=== PATIENT | male | born 1925 | race Caucasian/White ===

== ENCOUNTER 2017-02-01 17:27 | Inpatient (IN) | payer MEDICARE ==
[~2017-02-01] VITALS: Ht 182.9 cm; Wt 63.5 kg
--- NOTE | 2017-02-01 17:38 | Emergency Room Report ---
History of Present Illness General Chief Complaint: Syncope Source: Patient Present Illness HPI Patient presents with complaints of possible syncopal episode Paramedics report that there was some argument with the patient's daughter and therefore history was extremely limited There reports was essentially syncopal episode here the patient cannot provide specific history he states that he has many medical problems but cannot give any specific diagnoses or any other medications Am still pending for the family to arrive patient does feel somewhat short of breath however Denies any vomiting or diarrhea He has a sacral decubitus ulcer which is painful Patient's daughter did present soon after his arrival She does provide significant information that the patient has had 2 recent admissions to [facility] Patient has found to be anemic and had blood transfusion this past Tuesday Patient is also on anticoagulations for the atrial fibrillation The daughter describes the episode as the patient's becoming extremely weak while standing at the restroom and describes a near syncopal episode the patient was helped down to the ground Allergies: Coded Allergies: CLINDAMYCIN (Unverified Allergy, Unknown, 02/01/17) DOXYCYCLINE (Unverified Allergy, Unknown, 02/01/17) PENICILLINS (Unverified Allergy, Unknown, 02/01/17) SULFA (SULFONAMIDE ANTIBIOTICS) (Unverified Allergy, Unknown, 02/01/17) Patient History Past Medical History: see triage record Pertinent Family History: none Reviewed Nursing Documentation: PMH: Agreed, PSxH: Agreed Nursing Documentation-PMH Past Medical History: No Stated History Review of Systems All Other Systems: negative except mentioned in HPI Physical Exam Vital Signs Date Time Temp Pulse Resp B/P Pulse Ox O2 Delivery O2 Flow Rate FiO2 02/01/17 17:22 97.9 88 16 130/80 98 Room Air Sp02 EP Interpretation: reviewed, normal General Appearance: no apparent distress - However the patient appears jaundice Head: normocephalic, atraumatic Eyes: bilateral eye PERRL, bilateral eye EOMI, bilateral eye scleral icterus ENT: hearing grossly normal, normal pharynx, TMs + canals normal, uvula midline Neck: full range of motion, supple, no meningismus, no bony tend Respiratory: no retraction, no accessory muscle use, crackles - diffuse lower lobes Cardiovascular #1: normal peripheral pulses, regular rate, rhythm, no gallop, no JVD, no murmur, edema - 2/4 pitting bilateral lower extremity Gastrointestinal: normal bowel sounds, non tender, soft, no mass, no organomegaly, non-distended, no guarding, no hernia, no pulsatile mass, no rebound Genitourinary: no CVA tenderness Musculoskeletal: normal inspection Neurologic: responsive - However appears mildly confused, campus chaplain III-XII nml as tested, motor strength/tone normal, sensory intact Psychiatric: mood/affect normal Skin: other - Jaundice appearance with pitting edema Lymphatic: no adenopathy Procedures Critical Care Time Critical Care Time 40 minutes for multiple re\re evaluations, critical findings on laboratory, multiorgan dysfunction including cardiac, renal, and liver Multiple discussion with family, not including any procedural time Medical Decision Making Diagnostic Impression: Primary Impression: Syncope Additional Impressions: Cholecystitis LFT elevation Sacral wound ER Course Patient is a fairly complex patient with multiple differential to consideration including but not limited to cardiac cardiopulmonary, infectious and vascular emergencies Patient's blood work reveals some abnormal findings including transaminases elevated Patient had recent blood work at [facility] total bilirubin was elevated at that time however the AST ALT were normal Ultrasound this time reveals a thickened gallbladder with sludge reason for concern of possible cholecystitis Patient's EKG is also abnormal X-ray also showing signs of effusion and possible CHF Patient was initiated on broad-spectrum antibiotics Diuretic And requires multispecialty consultation Labs Test 02/01/17 17:45 02/01/17 19:00 02/01/17 19:35 02/01/17 21:50 White Blood Count 8.8 K/UL (4.8-10.8) Red Blood Count 3.20 M/UL (4.70-6.10) Hemoglobin 10.2 G/DL (14.2-18.0) Hematocrit 29.2 % (42.0-52.0) Mean Corpuscular Volume 91 FL (80-99) Mean Corpuscular Hemoglobin 31.8 PG (27.0-31.0) Mean Corpuscular Hemoglobin Concent 34.7 G/DL (32.0-36.0) Red Cell Distribution Width 17.3 % (11.6-14.8) Platelet Count 124 K/UL (150-450) Mean Platelet Volume 7.9 FL (6.5-10.1) Neutrophils (%) (Auto) 81.2 % (45.0-75.0) Lymphocytes (%) (Auto) 13.1 % (20.0-45.0) Monocytes (%) (Auto) 5.2 % (1.0-10.0) Eosinophils (%) (Auto) 0.2 % (0.0-3.0) Basophils (%) (Auto) 0.4 % (0.0-2.0) Differential Total Cells Counted 100 Neutrophils % (Manual) 74 % (45-75) Lymphocytes % (Manual) 15 % (20-45) Monocytes % (Manual) 7 % (1-10) Eosinophils % (Manual) 0 % (0-3) Basophils % (Manual) 0 % (0-2) Band Neutrophils 4 % (0-8) Platelet Estimate Decreased Platelet Morphology Normal Hypochromasia 1+ Anisocytosis 1+ Prothrombin Time 14.3 SEC (9.30-11.50) 17.9 SEC (9.30-11.50) Prothromb Time International Ratio 1.4 (0.9-1.1) 1.7 (0.9-1.1) Activated Partial Thromboplast Time 28 SEC (23-33) Sodium Level 138 mEQ/L (135-145) Potassium Level 4.3 mEQ/L (3.4-4.9) Chloride Level 97 mEQ/L (98-107) Carbon Dioxide Level 26 mEQ/L (20-30) Anion Gap 15 (5-15) Blood Urea Nitrogen 22 mg/dL (7-23) Creatinine 1.0 mg/dL (0.7-1.2) Estimat Glomerular Filtration Rate mL/min (>60) Glucose Level 136 mg/dL (74-106) Lactic Acid Level 3.60 mmol/L (0.66-2.22) 2.40 mmol/L (0.66-2.22) Calcium Level 9.4 mg/dL (8.6-10.2) Total Bilirubin 5.1 mg/dL (0.0-1.2) Direct Bilirubin 3.1 mg/dL (0.1-0.3) Aspartate Amino Transf (AST/SGOT) 521 U/L (5-40) Alanine Aminotransferase (ALT/SGPT) 279 U/L (3-41) Alkaline Phosphatase 247 U/L (40-129) Total Creatine Kinase 47 U/L (38-174) Creatine Kinase MB 4.0 ng/mL (< 6.7) Creatine Kinase MB Relative Index 8.5 Troponin I < 0.30 ng/mL (<=0.30) Pro-B-Type Natriuretic Peptide 8430 pg/mL (0-450) Total Protein 5.9 g/dL (6.6-8.7) Albumin 4.4 g/dL (3.5-5.2) Globulin 1.5 g/dL Albumin/Globulin Ratio 2.9 (1.0-2.7) Lipase 44 U/L (< 60) Urine Color Brown Urine Appearance Slightly cloudy Urine pH 5 (4.5-8.0) Urine Specific [place] 1.005 (1.005-1.035) Urine Protein 2+ (NEGATIVE) Urine Glucose (UA) Negative (NEGATIVE) Urine Ketones Negative (NEGATIVE) Urine Occult Blood 5+ (NEGATIVE) Urine Nitrite Negative (NEGATIVE) Urine Bilirubin 1+ (NEGATIVE) Urine Ictotest Negative Urine Urobilinogen 8 MG/DL (0.0-1.0) Urine Leukocyte Esterase 1+ (NEGATIVE) Urine RBC 20-30 /HPF (0 - 0) Urine WBC 5-10 /HPF (0 - 0) Urine Squamous Epithelial Cells None /LPF (NONE/OCC) Urine Amorphous Sediment Few /LPF (NONE) Urine Bacteria Moderate /HPF (NONE) Ammonia 26 umol/L (16-60) Digoxin Level 1.8 ng/mL (0.5-2.0) Reticulocyte Count 3.8 % (0.0-2.0) Fibrinogen 196 mg/dL (200-400) Uric Acid 4.9 mg/dL (3.0-7.5) Iron Level 30 ug/dL (59-158) Total Iron Binding Capacity 255 ug/dL (250-400) Percent Iron Saturation 12 % (15-50) Unsaturated Iron Binding 225 ug/dL (112-346) Ferritin 511 ng/mL (10-230) Lactate Dehydrogenase 852 U/L (135-230) Vitamin B12 Level > 2000 pg/mL (211-946) Hepatitis A IgM Antibody Negative (Negative) Hepatitis B Surface Antigen Negative (Negative) Hepatitis B Core IgM Antibody Negative (Negative) Hepatitis C Antibody <0.1 s/co ratio HIV (1&2) Antibody Rapid Negative (NEGATIVE) Test 02/02/17 07:45 02/02/17 12:00 02/03/17 07:10 White Blood Count 10.7 K/UL (4.8-10.8) 6.6 K/UL (4.8-10.8) Red Blood Count 3.04 M/UL (4.70-6.10) 3.15 M/UL (4.70-6.10) Hemoglobin 9.1 G/DL (14.2-18.0) 9.4 G/DL (14.2-18.0) Hematocrit 27.8 % (42.0-52.0) 29.2 % (42.0-52.0) Mean Corpuscular Volume 91 FL (80-99) 93 FL (80-99) Mean Corpuscular Hemoglobin 29.9 PG (27.0-31.0) 29.9 PG (27.0-31.0) Mean Corpuscular Hemoglobin Concent 32.8 G/DL (32.0-36.0) 32.3 G/DL (32.0-36.0) Red Cell Distribution Width 16.8 % (11.6-14.8) 17.2 % (11.6-14.8) Platelet Count 132 K/UL (150-450) 133 K/UL (150-450) Mean Platelet Volume 7.6 FL (6.5-10.1) 8.1 FL (6.5-10.1) Neutrophils (%) (Auto) 80.3 % (45.0-75.0) 77.9 % (45.0-75.0) Lymphocytes (%) (Auto) 10.4 % (20.0-45.0) 9.7 % (20.0-45.0) Monocytes (%) (Auto) 8.7 % (1.0-10.0) 9.8 % (1.0-10.0) Eosinophils (%) (Auto) 0.2 % (0.0-3.0) 1.5 % (0.0-3.0) Basophils (%) (Auto) 0.4 % (0.0-2.0) 1.0 % (0.0-2.0) Prothrombin Time 17.6 SEC (9.30-11.50) 16.1 SEC (9.30-11.50) Prothromb Time International Ratio 1.7 (0.9-1.1) 1.5 (0.9-1.1) Digoxin Level 1.8 ng/mL (0.5-2.0) Stool Occult Blood Negative (NEGATIVE) Sodium Level 134 mEQ/L (135-145) Potassium Level 3.9 mEQ/L (3.4-4.9) Chloride Level 95 mEQ/L (98-107) Carbon Dioxide Level 30 mEQ/L (20-30) Anion Gap 9 (5-15) Blood Urea Nitrogen 21 mg/dL (7-23) Creatinine 1.0 mg/dL (0.7-1.2) Estimat Glomerular Filtration Rate mL/min (>60) Glucose Level 142 mg/dL (74-106) Hemoglobin A1c 5.4 % (< 6.0) Uric Acid 4.3 mg/dL (3.0-7.5) Calcium Level 8.9 mg/dL (8.6-10.2) Phosphorus Level 3.2 mg/dL (2.5-4.8) Magnesium Level 1.9 mg/dL (1.7-2.5) Total Bilirubin 4.3 mg/dL (0.0-1.2) Direct Bilirubin 2.1 mg/dL (0.1-0.3) Gamma Glutamyl Transpeptidase 257 U/L (8-61) Aspartate Amino Transf (AST/SGOT) 188 U/L (5-40) Alanine Aminotransferase (ALT/SGPT) 317 U/L (3-41) Alkaline Phosphatase 215 U/L (40-129) Ammonia 24 umol/L (16-60) C-Reactive Protein, Quantitative 9.9 mg/dL (< 0.5) Pro-B-Type Natriuretic Peptide 7664 pg/mL (0-450) Total Protein 5.8 g/dL (6.6-8.7) Albumin 3.6 g/dL (3.5-5.2) Globulin 2.2 g/dL Albumin/Globulin Ratio 1.6 (1.0-2.7) Triglycerides Level 81 mg/dL (< 150) Cholesterol Level 80 mg/dL (< 200) LDL Cholesterol 36 mg/dL (60-99) HDL Cholesterol 28 mg/dL (> 60) Cholesterol/HDL Ratio 2.9 (3.3-4.4) Amylase Level 36 U/L (10-110) Carcinoembryonic Antigen 1.0 ng/mL Thyroid Stimulating Hormone (TSH) 0.922 uIU/mL (0.300-4.500) Free Thyroxine 1.23 ng/dL (0.86-1.85) EKG Diagnostic Results Rate: other - atrial fibrillation Rhythm: other ST Segments: other - Nonspecific ST and T-wave changes, concerning changes for ischemia Rhythm Strip Diag. Results EP Interpretation: yes Rate: 77 Rhythm: no PVC's, no ectopy, other - atrial fibrillation Chest X-Ray Diagnostic Results Chest X-Ray Diagnostic Results : Chest X-Ray Ordered: Yes # of Views/Limited/Complete: 1 View Indication: Chest Pain EP Interpretation: Yes Interpretation: no pneumothorax, other - Bilateral effusions, cardiomegaly, no obvious acute bony abnormalities Impression: Other - Bilateral effusions, cardiomegaly Interpreting ER Provider: Latesha River, DO CT/MRI/US Diagnostic Results CT/MRI/US Diagnostic Results : Impression Abdominal ultrasound: Thickened gallbladder, sludge refer to report for full detail Last Vital Signs Date Time Temp Pulse Resp B/P Pulse Ox O2 Delivery O2 Flow Rate FiO2 02/01/17 17:22 97.9 88 16 130/80 98 Room Air Status: improved Disposition: ADMITTED INPATIENT Condition: Critical LATESHA RIVER D.O. Feb 01, 2017 17:38
[2017-02-01 18:03] VITALS: BP 135/51
[2017-02-01] MEDS ORDERED: ELIQUIS2.5 MG PO (18:16)
[2017-02-01] MEDS ORDERED: ASPIR 8181 MG ORAL (18:16)
[2017-02-01] MEDS ORDERED: METFORMIN HCL500 M1 ORAL (18:33)
[2017-02-01] MEDS ORDERED: TAMSULOSIN HCL0.4 MG ORAL (18:33)
[2017-02-01] MEDS ORDERED: GLUCOSAMINE HC500 MG PO (18:33)
[2017-02-01] MEDS ORDERED: PRESERVISION A1 EACH PO (18:33)
[2017-02-01] MEDS ORDERED: FERROUS SULFAT325 MG ORAL (18:33)
[2017-02-01] MEDS ORDERED: SIMVASTATIN10 MG ORAL (18:33)
[2017-02-01] MEDS ORDERED: MULTIVITAMINS1 EAC2 ORAL (18:33)
[2017-02-01] MEDS ORDERED: PROSTATE THERA1 EACH PO ×2 (18:33)
[2017-02-01] MEDS ORDERED: DIGOXIN0.125 MG/2 ORAL (18:33)
[2017-02-01] MEDS ORDERED: FUROSEMIDE20 M1 ORAL (18:33)
[2017-02-01] MEDS ORDERED: LORATADINE10 M3 PO (18:33)
[2017-02-01] MEDS ORDERED: CALCIUM 600 +1 EAC2 PO (18:33)
[2017-02-01] MEDS ORDERED: PRESERVISION A1 EAC2 PO (18:33)
[2017-02-01] MEDS ORDERED: PANTOPRAZOLE SO40 MG ORAL (18:33)
[2017-02-01] MEDS ORDERED: DOCUSATE SODIU100 MG ORAL (18:33)
[2017-02-01] MEDS ORDERED: PROSCAR5 MG ORAL (18:33)
[2017-02-01 18:34] LABS: INR 1.4 (0.9-1.1); PROTHROMBIN TIME 14.3 SEC (9.30-11.50)
[2017-02-01 18:38] LABS: BASOPHILS % (AUTO) 0.4 % (0.0-2.0); EOSINOPHILS % (AUTO) 0.2 % (0.0-3.0); LYMPHOCYTES % (AUTO) 13.1 % (20.0-45.0); MEAN CORPUSCULAR HEMOGLOBIN 31.8 PG (27.0-31.0); MEAN CORPUSCULAR HGB CONC 34.7 G/DL (32.0-36.0); MEAN CORPUSCULAR VOLUME 91 FL (80-99); MEAN PLATELET VOLUME 7.9 FL (6.5-10.1); MONOCYTES % (AUTO) 5.2 % (1.0-10.0); NEUTROPHILS % (AUTO) 81.2 % (45.0-75.0); PLATELET COUNT 124 K/UL (150-450); RED CELL DISTRIBUTION WIDTH 17.3 % (11.6-14.8); WHITE BLOOD COUNT 8.8 K/UL (4.8-10.8)
[2017-02-01 18:41] LABS: TROPONIN I < 0.30 ng/mL (<=0.30)
[2017-02-01] MEDS ORDERED: TYLENOL EXTRA500 MG ORAL (18:41)
[2017-02-01] MEDS ORDERED: VITAMIN D1000 UNI1 ORAL (18:41)
[2017-02-01] MEDS ORDERED: LORAZEPAM0.5 MG ORAL (18:41)
[2017-02-01] MEDS ORDERED: VERAPAMIL SR180 MG PO (18:41)
[2017-02-01 18:43] LABS: REFLEX LACTIC ACID YES OR NO YES
[2017-02-01 18:44] LABS: ALANINE AMINOTRANSFERASE 279 U/L (3-41); ALBUMIN/GLOBULIN RATIO 2.9 (1.0-2.7); ANION GAP 15 (5-15); ASPARTATE AMINO TRANSFERASE 521 U/L (5-40); CALCIUM 9.4 mg/dL (8.6-10.2); CARBON DIOXIDE 26 mEQ/L (20-30); CHLORIDE 97 mEQ/L (98-107); HEMOLYSIS 4; LIPASE 44 U/L (< 60); POTASSIUM 4.3 mEQ/L (3.4-4.9); SODIUM 138 mEQ/L (135-145); TOTAL PROTEIN 5.9 g/dL (6.6-8.7)
[2017-02-01 19:02] LABS: BILIRUBIN,DIRECT 3.1 mg/dL (0.1-0.3)
[2017-02-01 19:13] VITALS: BP 130/57
[2017-02-01 19:17] LABS: APPEARANCE,URINE SLIGHTLY CLOUDY; KETONES,URINE NEGATIVE (NEGATIVE); LEUKOCYTE ESTERASE ,URINE 1+ (NEGATIVE); NITRITE,URINE NEGATIVE (NEGATIVE); PH,URINE 5 (4.5-8.0); PROTEIN,URINE 2+ (NEGATIVE); UROBILINOGEN,URINE 8 MG/DL (0.0-1.0)
[2017-02-01 19:39] LABS: AMORPHOUS SEDIMENT,UR FEW /LPF; BACTERIA,URINE MODERATE /HPF; RBC,URINE 20-30 /HPF (0 - 0)
[2017-02-01 19:40] LABS: ICTOTEST NEGATIVE
[2017-02-01] MEDS ORDERED: Amikacin 500mg/2mL Inj ONE (20:45)
[2017-02-01] MEDS ORDERED: Amikacin 250 MG in NS 110 ML IV ONE (20:45)
[2017-02-01 22:25] LABS: INR 1.7 (0.9-1.1); PROTHROMBIN TIME 17.9 SEC (9.30-11.50)
--- NOTE | 2017-02-01 22:28 | Infectious Diseases Prog Note ---
Assessment/Plan Problems: (1) UTI (urinary tract infection) Assessment & Plan: will start aztreonam, pending urine culture (2) Cholecystitis Assessment & Plan: will need HIDA scan to confirm, GI is following , will add flagyl empirically (3) Syncope Assessment & Plan: suspect orthostatic, continue tele monitor, cardiology eval is pending (4) LFT elevation Assessment & Plan: rule out hepatitis, VS cholecystitis related , await MRI of the gall bladder , and hepatitis panel, monitor LFT (5) Sepsis Assessment & Plan: due to the above, send blood culture , continue antibiotics (6) Sacral wound Assessment & Plan: recommend off loading, and local wound care Subjective Allergies: Coded Allergies: CLINDAMYCIN (Unverified Allergy, Unknown, 02/01/17) DOXYCYCLINE (Unverified Allergy, Unknown, 02/01/17) PENICILLINS (Unverified Allergy, Unknown, 02/01/17) SULFA (SULFONAMIDE ANTIBIOTICS) (Unverified Allergy, Unknown, 02/01/17) Objective Vital Signs Last 24 Hour Vital Signs Date Time Temp Pulse Resp B/P Pulse Ox O2 Delivery O2 Flow Rate FiO2 02/01/17 20:57 97.9 93 24 130/57 100 Nasal Cannula 2.0 02/01/17 19:13 97.9 93 24 130/57 100 Nasal Cannula 2.0 02/01/17 18:03 97.9 90 24 135/51 100 Nasal Cannula 2.0 02/01/17 17:22 97.9 88 16 130/80 98 Room Air Height (Feet): 6 Weight (Pounds): 140 Laboratory Tests Test 02/01/17 17:45 02/01/17 19:00 02/01/17 19:35 02/01/17 21:50 White Blood Count 8.8 K/UL (4.8-10.8) Red Blood Count 3.20 M/UL (4.70-6.10) L Hemoglobin 10.2 G/DL (14.2-18.0) L Hematocrit 29.2 % (42.0-52.0) L Mean Corpuscular Volume 91 FL (80-99) Mean Corpuscular Hemoglobin 31.8 PG (27.0-31.0) H Mean Corpuscular Hemoglobin Concent 34.7 G/DL (32.0-36.0) Red Cell Distribution Width 17.3 % (11.6-14.8) H Platelet Count 124 K/UL (150-450) L Mean Platelet Volume 7.9 FL (6.5-10.1) Neutrophils (%) (Auto) 81.2 % (45.0-75.0) H Lymphocytes (%) (Auto) 13.1 % (20.0-45.0) L Monocytes (%) (Auto) 5.2 % (1.0-10.0) Eosinophils (%) (Auto) 0.2 % (0.0-3.0) Basophils (%) (Auto) 0.4 % (0.0-2.0) Neutrophils % (Manual) Pending Lymphocytes % (Manual) Pending Platelet Estimate Pending Platelet Morphology Pending Prothrombin Time 14.3 SEC (9.30-11.50) H Pending Prothromb Time International Ratio 1.4 (0.9-1.1) H Pending Activated Partial Thromboplast Time 28 SEC (23-33) Sodium Level 138 mEQ/L (135-145) Potassium Level 4.3 mEQ/L (3.4-4.9) Chloride Level 97 mEQ/L (98-107) L Carbon Dioxide Level 26 mEQ/L (20-30) Anion Gap 15 (5-15) Blood Urea Nitrogen 22 mg/dL (7-23) Creatinine 1.0 mg/dL (0.7-1.2) Estimat Glomerular Filtration Rate mL/min (>60) Glucose Level 136 mg/dL (74-106) H Lactic Acid Level 3.60 mmol/L (0.66-2.22) H 2.40 mmol/L (0.66-2.22) H Calcium Level 9.4 mg/dL (8.6-10.2) Total Bilirubin 5.1 mg/dL (0.0-1.2) H Direct Bilirubin 3.1 mg/dL (0.1-0.3) H Aspartate Amino Transf (AST/SGOT) 521 U/L (5-40) H Alanine Aminotransferase (ALT/SGPT) 279 U/L (3-41) H Alkaline Phosphatase 247 U/L (40-129) H Total Creatine Kinase 47 U/L (38-174) Creatine Kinase MB 4.0 ng/mL (< 6.7) Creatine Kinase MB Relative Index 8.5 Troponin I < 0.30 ng/mL (<=0.30) Pro-B-Type Natriuretic Peptide 8430 pg/mL (0-450) H Total Protein 5.9 g/dL (6.6-8.7) L Albumin 4.4 g/dL (3.5-5.2) Globulin 1.5 g/dL Albumin/Globulin Ratio 2.9 (1.0-2.7) H Lipase 44 U/L (< 60) Urine Color Brown Urine Appearance Slightly cloudy Urine pH 5 (4.5-8.0) Urine Specific [place] 1.005 (1.005-1.035) Urine Protein 2+ (NEGATIVE) H Urine Glucose (UA) Negative (NEGATIVE) Urine Ketones Negative (NEGATIVE) Urine Occult Blood 5+ (NEGATIVE) H Urine Nitrite Negative (NEGATIVE) Urine Bilirubin 1+ (NEGATIVE) H Urine Ictotest Negative Urine Urobilinogen 8 MG/DL (0.0-1.0) H Urine Leukocyte Esterase 1+ (NEGATIVE) H Urine RBC 20-30 /HPF (0 - 0) H Urine WBC 5-10 /HPF (0 - 0) H Urine Squamous Epithelial Cells None /LPF (NONE/OCC) Urine Amorphous Sediment Few /LPF (NONE) H Urine Bacteria Moderate /HPF (NONE) H Ammonia 26 umol/L (16-60) Digoxin Level Pending Reticulocyte Count Pending Fibrinogen Pending Uric Acid Pending Iron Level Pending Unsaturated Iron Binding Pending Ferritin Pending Lactate Dehydrogenase Pending Vitamin B12 Level Pending Hepatitis A IgM Antibody Pending Hepatitis B Surface Antigen Pending Hepatitis B Core IgM Antibody Pending Hepatitis C Antibody Pending HIV (1&2) Antibody Rapid Pending Brandy Russ M.D. Feb 01, 2017 22:28
[2017-02-01 22:34] LABS: HEMOLYSIS 0; IRON 30 ug/dL (59-158); LACTATE DEHYDROGENASE 852 U/L (135-230); TOTAL IRON BINDING CAPACITY 255 ug/dL (250-400); URIC ACID 4.9 mg/dL (3.0-7.5)
[2017-02-01 22:37] LABS: BAND NEUTROPHILS % (MANUAL) 4 % (0-8); LYMPHOCYTES % (MANUAL) 15 % (20-45); NEUTROPHILS % (MANUAL) 74 % (45-75); TOTAL CELLS COUNTED 100
[2017-02-01 22:38] LABS: ANISOCYTOSIS 1+; BASOPHILS % (MANUAL) 0 % (0-2); EOSINOPHILS % (MANUAL) 0 % (0-3); HYPOCHROMASIA 1+; PATH BLOOD SMEAR/OMC SENT TO PATHOLOGIST; PLATELET ESTIMATE DECREASED; PLATELET MORPHOLOGY NORMAL
[2017-02-01 22:44] LABS: FERRITIN 511 ng/mL (10-230)
[2017-02-01] MEDS ORDERED: LORazepam 0.5mg tab ORAL PRN (22:45)
[2017-02-01] MEDS ORDERED: Aztreonam Inj 1 GM in D5W 55 ML IVPB SCH (23:30)
[2017-02-01 23:56] VITALS: BP 114/62
[2017-02-02] VITALS: BP 114/62
[2017-02-02 08:00] VITALS: BP 118/57
[2017-02-02 08:22] LABS: BASOPHILS % (AUTO) 0.4 % (0.0-2.0); EOSINOPHILS % (AUTO) 0.2 % (0.0-3.0); LYMPHOCYTES % (AUTO) 10.4 % (20.0-45.0); MEAN CORPUSCULAR HEMOGLOBIN 29.9 PG (27.0-31.0); MEAN CORPUSCULAR HGB CONC 32.8 G/DL (32.0-36.0); MEAN CORPUSCULAR VOLUME 91 FL (80-99); MEAN PLATELET VOLUME 7.6 FL (6.5-10.1); MONOCYTES % (AUTO) 8.7 % (1.0-10.0); NEUTROPHILS % (AUTO) 80.3 % (45.0-75.0); PLATELET COUNT 132 K/UL (150-450); RED BLOOD COUNT 3.04 M/UL (4.70-6.10); RED CELL DISTRIBUTION WIDTH 16.8 % (11.6-14.8); WHITE BLOOD COUNT 10.7 K/UL (4.8-10.8)
[2017-02-02 08:34] LABS: INR 1.7 (0.9-1.1); PROTHROMBIN TIME 17.6 SEC (9.30-11.50)
--- NOTE | 2017-02-02 09:11 | Diagnostic Imaging Report ---
Indications: Elevated liver function tests Technique: Transabdominal real-time grayscale and duplex Doppler imaging of the upper abdomen and retroperitoneum was performed. Findings: Comparison: None. Liver normal size and surface contour, coarsened parenchymal echogenicity. Contains several circumscribed anechoic foci up to 21 mm. Gallbladder contains layering echogenic non-shadowing material. Mild mural thickening/edema. No adjacent fluid collection. Sonographic Zambrano sign reported as negative.. Bile ducts normal caliber. Common bile duct 4 mm. Pancreas head and body unremarkable; tail obscured. Spleen unremarkable. Right kidney contains circumscribed anechoic cortical foci up to 17 mm, otherwise unremarkable. Left kidney contains circumscribed anechoic cortical foci up to 19 mm, otherwise unremarkable. Abdominal aorta, intrahepatic portion of inferior vena cava patent, normal caliber. Duplex Doppler imaging demonstrates antegrade flow in splenic, portal, hepatic veins. No ascites. Small right pleural effusion. IMPRESSION: Liver echogenicity suggests chronic hepatocellular disease Gallbladder sludge. Intermixed small stones not excludable. Mural thickening may be due to adjacent liver disease. Cholecystitis not excludable, though sonographic Zambrano sign negative. Consider nuclear medicine hepatobiliary scan for further evaluation, as clinically indicated. No evidence of bile duct dilation/obstruction Pancreatic tail obscured Hepatic, bilateral renal cysts Small right pleural effusion, nonspecific. This correlates with Dr. Richey's preliminary report.
--- NOTE | 2017-02-02 09:26 | Diagnostic Imaging Report ---
Indications: Chest pain Technique: Portable AP chest Findings: Comparison: None Suboptimal inspiration limits evaluation. Cardiac silhouette partially obscured, may be enlarged. Curvilinear calcification overlies left-sided cardiac silhouette. Pulmonary vascular redistribution. Bilateral interstitial infiltrates. Bibasal pleural effusions. Aortic arch calcified. Thoracic vertebral osteophytes. IMPRESSION: Congestive heart failure Cardiomegaly with mitral valvular versus annular calcification Aortosclerosis Degenerative spondylosis
--- NOTE | 2017-02-02 09:39 | Wound Care Consultation ---
Wound Assessment Wound Assessment #1: Wound Number: 1 Wound Present on Admission: Yes New Wound: No Status Change of Wound: No Wound Location Body Site: other - sacrococcygeal area Wound Type: pressure ulcer Skyler Test: Does not Skyler Pressure Ulcer Stage: II - scattered Wound Length: 2.5 Wound Width: 3.0 Wound Depth: less than 0.1 Percent of Wound [place]/Red: 100 Wound Drainage Description: Serosanguineous Wound Drainage Amount: Scant Wound Drainage Odor: None/Absent Tissue Surrounding Wound: Erythemic Wound General Appearance: Reddened, Draining Wound Assessment #2: Wound Number: 2 Wound Present on Admission: Yes New Wound: No Status Change of Wound: No Wound Location Body Site Modif: mid, upper Wound Location Body Site: sacral Wound Type: pressure ulcer Skyler Test: Does not Skyler Pressure Ulcer Stage: deep tissue injury Wound Thickness: Full Thickness Wound Length: 3.0 Wound Width: 3.0 Wound Depth: utd Percent of Wound Purple/Maroon: 100 Wound Drainage Amount: None Wound Drainage Odor: None/Absent Tissue Surrounding Wound: Erythemic Wound General Appearance: Reddened Wound Comment #1 Sacrococcygeal scattered stage II pressure ulcers #2 Upper mid Sacral area DTI pressure ulcer Recommendation -Sacrococcygeal scattered stage II pressure ulcers, Cleanse with saline pat dry apply skin barrier film on including on DTI on mid upper sacral area, apply Triad cream to wound bed, cover with Biatain silicone drg daily and PRN soiled/dislodged -Keep clean and dry -Low air loss mattress -Offload both heels -Heel protector on both heels -Turn and reposition -Optimize nutrition -Assess and f/u accordingly for any changes SEBASTIEN PARTIDA RN Feb 02, 2017 09:39
--- NOTE | 2017-02-02 10:10 | Consultation ---
Consult Note Consult Note Chief Complaint: Syncope Patient presents with complaints of possible syncopal episode Paramedics report that there was some argument with the patient's daughter and therefore history was extremely limited There reports was essentially syncopal episode here the patient cannot provide specific history he states that he has many medical problems but cannot give any specific diagnoses or any other medications Am still pending for the family to arrive patient does feel somewhat short of breath however Denies any vomiting or diarrhea He has a sacral decubitus ulcer which is painful Patient's daughter did present soon after his arrival She does provide significant information that the patient has had 2 recent admissions to [facility] Patient has found to be anemic and had blood transfusion this past Tuesday Patient is also on anticoagulations for the atrial fibrillation Assessment/Plan UTI, Sepsis , high Lactic Syncope CHF At Fib DM Anemia No renal issue- Per cardio- Neuro Watch electrolytes adjust BP ANIA Martinez Feb 02, 2017 10:10
[2017-02-02] MEDS ORDERED: LORazepam 1mg tab ORAL PRN ×2 (11:15→11:30)
--- NOTE | 2017-02-02 11:37 | GI Initial Consult Note ---
MeghaTabby Puentes N.P. 02/02/17 1137: History of Present Illness General Date patient seen: Feb 02, 2017 Time patient seen: 11:29 Reason for Hospitalization: Syncope Referring physician: KATIE SHAW Reason for Consultation: ELEVATED LFTs Present Illness HPI Patient presents with complaints of possible syncopal episode Paramedics report that there was some argument with the patient's daughter and therefore history was extremely limited There reports was essentially syncopal episode here the patient cannot provide specific history he states that he has many medical problems but cannot give any specific diagnoses or any other medications Am still pending for the family to arrive patient does feel somewhat short of breath however Denies any vomiting or diarrhea He has a sacral decubitus ulcer which is painful Patient's daughter did present soon after his arrival She does provide significant information that the patient has had 2 recent admissions to [facility] Patient has found to be anemic and had blood transfusion this past Tuesday Patient is also on anticoagulations for the atrial fibrillation The daughter describes the episode as the patient's becoming extremely weak while standing at the restroom and describes a near syncopal episode the patient was helped down to the ground GI Consult. HPI as noted above. GI consulted for elevated LFTs, anemia. ROS limited, patient seen on floor awake [id number] with no active s/sx N/V/D. According to the patients daughter, the patient was recently admitted to [facility] for syncope and anemia requiring 2 units of blood. He presents today with anemia and elevated LFTs. Abdominal U/S shows GB sludge, but no obvious bile duct dilation or obstruction, see full report below. In addition, the patient has constipation. MRCP pending, Hepatitis panel pending. Unknown history of endoscopic procedures. Procedure: US ABD Complete Indications: Elevated liver function tests IMPRESSION: Liver echogenicity suggests chronic hepatocellular disease Gallbladder sludge. Intermixed small stones not excludable. Mural thickening may be due to adjacent liver disease. Cholecystitis not excludable, though sonographic Zambrano sign negative. Consider nuclear medicine hepatobiliary scan for further evaluation, as clinically indicated. No evidence of bile duct dilation/obstruction Pancreatic tail obscured Hepatic, bilateral renal cysts Small right pleural effusion, nonspecific. Home Meds Reported Medications Acetaminophen* (TYLENOL EXTRA STRENGTH*) 500 Mg Tablet, 500 MG ORAL TAKE 2 TABLETS IN THE MORNING AND 2 TABLETS AT NIGHT AND NEEDED FOR PAIN EVERY 6 HOURS 8/22/17 Lorazepam* (LORAZEPAM*) 0.5 Mg Tablet, 0.5 MG ORAL Y for Agitation, TAB 02/01/17 Cholecalciferol (Vitamin D3)* (VITAMIN D*) 1,000 Unit Tablet, 2000 UNITS ORAL DAILY, #30 TAB 0 Refills 02/01/17 Verapamil HCl (Verapamil Sr) 180 Mg Cap24h.pel, 180 MG PO DAILY, CAP 02/01/17 Tamsulosin Hcl (TAMSULOSIN HCL*) 0.4 Mg Cap.er.24h, 0.4 MG ORAL, CAP TAKE ONE TABLET BY MOUTH ONCE DAILY AFTER BREAKFAST 02/01/17 Simvastatin (ZOCOR) 10 Mg Tablet, 10 MG ORAL BEDTIME, TAB 02/01/17 Vit A/Vit C/Vit E/Zinc/Copper (PRESERVISION AREDS SOFTGEL) 1 Each Capsule, 1 EACH PO BID, CAP 02/01/17 M-17/Nettle/Pumpk/Saw Palmet (PROSTATE THERAPY SOFTGEL) 1 Each Capsule, 1 EACH PO BEDTIME, CAP 02/01/17 Pantoprazole* (PANTOPRAZOLE*) 40 Mg Tablet.dr, 40 MG ORAL BEFORE LUNCH, TAB 02/01/17 Multivitamins* (MULTIVITAMINS*) 1 Each Tablet, 1 TAB ORAL DAILY, TAB 0 Refills 02/01/17 Metformin Hcl* (METFORMIN HCL*) 500 Mg Tablet, 500 MG ORAL TWICE A DAY, TAB 02/01/17 Loratadine (LORATADINE) 10 Mg Capsule, 10 MG PO BEDTIME, CAP 02/01/17 Glucosamine Hcl (GLUCOSAMINE HCL) 500 Mg Tablet, 500 MG PO BID, TAB 02/01/17 Furosemide* (LASIX*) 20 Mg Tablet, 20 MG ORAL DAILY, TAB 02/01/17 Finasteride* (PROSCAR*) 5 Mg Tablet, 5 MG ORAL DAILY, #30 TAB 0 Refills TAKE 1 TABLET BY MOUTH ONCE DAILY AFTER BREAKFAST 02/01/17 Ferrous Sulfate* (FERROUS SULFATE*) 325 Mg Tablet, 325 MG ORAL TWICE A DAY, #60 TAB 0 Refills 02/01/17 Docusate Sodium* (DOCUSATE SODIUM*) 100 Mg Capsule, 100 MG ORAL TWICE A DAY, CAP 02/01/17 Digoxin* (DIGOXIN*) 0.125 Mg/2.5 Ml Solution, 0.125 MG ORAL DAILY, ML 0 Refills 02/01/17 Calcium Carbonate/Vitamin D3 (CALCIUM 600 + VIT D 200 TABLET) 1 Each Tablet, 1 EACH PO BID, TAB 02/01/17 Aspirin* (ASPIR 81*) 81 Mg Tablet.dr, 81 MG ORAL DAILY, TAB 02/01/17 Apixaban (ELIQUIS) 2.5 Mg Tablet, 2.5 MG PO BID, TAB 02/01/17 Med list reviewed/reconciled: Yes Allergies: Coded Allergies: CLINDAMYCIN (Unverified Allergy, Unknown, 02/01/17) DOXYCYCLINE (Unverified Allergy, Unknown, 02/01/17) PENICILLINS (Unverified Allergy, Unknown, 02/01/17) SULFA (SULFONAMIDE ANTIBIOTICS) (Unverified Allergy, Unknown, 02/01/17) Patient History Limited by: medical condition History Provided By: Family Member, Medical Record PMH Narrative Past Medical History: see triage record Pertinent Family History: none Reviewed Nursing Documentation: PMH: Agreed, PSxH: Agreed Nursing Documentation-PMH Past Medical History: No Stated History Social History: Denies: smoking, alcohol use, drug use, other Review of Systems All Other Systems: limited Physical Exam Vital Signs Date Time Temp Pulse Resp B/P (MAP) Pulse Ox O2 Delivery O2 Flow Rate FiO2 02/01/17 17:22 97.9 88 16 130/80 98 Room Air 02/01/17 18:03 2.0 Sp02 EP Interpretation: reviewed Labs Laboratory Tests Test 02/01/17 17:45 02/01/17 19:00 02/01/17 19:35 02/01/17 21:50 White Blood Count 8.8 K/UL (4.8-10.8) Red Blood Count 3.20 M/UL (4.70-6.10) L Hemoglobin 10.2 G/DL (14.2-18.0) L Hematocrit 29.2 % (42.0-52.0) L Mean Corpuscular Volume 91 FL (80-99) Mean Corpuscular Hemoglobin 31.8 PG (27.0-31.0) H Mean Corpuscular Hemoglobin Concent 34.7 G/DL (32.0-36.0) Red Cell Distribution Width 17.3 % (11.6-14.8) H Platelet Count 124 K/UL (150-450) L Mean Platelet Volume 7.9 FL (6.5-10.1) Neutrophils (%) (Auto) 81.2 % (45.0-75.0) H Lymphocytes (%) (Auto) 13.1 % (20.0-45.0) L Monocytes (%) (Auto) 5.2 % (1.0-10.0) Eosinophils (%) (Auto) 0.2 % (0.0-3.0) Basophils (%) (Auto) 0.4 % (0.0-2.0) Differential Total Cells Counted 100 Neutrophils % (Manual) 74 % (45-75) Lymphocytes % (Manual) 15 % (20-45) L Monocytes % (Manual) 7 % (1-10) Eosinophils % (Manual) 0 % (0-3) Basophils % (Manual) 0 % (0-2) Band Neutrophils 4 % (0-8) Platelet Estimate Decreased L Platelet Morphology Normal Hypochromasia 1+ Anisocytosis 1+ Prothrombin Time 14.3 SEC (9.30-11.50) H 17.9 SEC (9.30-11.50) H Prothromb Time International Ratio 1.4 (0.9-1.1) H 1.7 (0.9-1.1) H Activated Partial Thromboplast Time 28 SEC (23-33) Sodium Level 138 mEQ/L (135-145) Potassium Level 4.3 mEQ/L (3.4-4.9) Chloride Level 97 mEQ/L (98-107) L Carbon Dioxide Level 26 mEQ/L (20-30) Anion Gap 15 (5-15) Blood Urea Nitrogen 22 mg/dL (7-23) Creatinine 1.0 mg/dL (0.7-1.2) Estimat Glomerular Filtration Rate mL/min (>60) Glucose Level 136 mg/dL (74-106) H Lactic Acid Level 3.60 mmol/L (0.66-2.22) H 2.40 mmol/L (0.66-2.22) H Calcium Level 9.4 mg/dL (8.6-10.2) Total Bilirubin 5.1 mg/dL (0.0-1.2) H Direct Bilirubin 3.1 mg/dL (0.1-0.3) H Aspartate Amino Transf (AST/SGOT) 521 U/L (5-40) H Alanine Aminotransferase (ALT/SGPT) 279 U/L (3-41) H Alkaline Phosphatase 247 U/L (40-129) H Total Creatine Kinase 47 U/L (38-174) Creatine Kinase MB 4.0 ng/mL (< 6.7) Creatine Kinase MB Relative Index 8.5 Troponin I < 0.30 ng/mL (<=0.30) Pro-B-Type Natriuretic Peptide 8430 pg/mL (0-450) H Total Protein 5.9 g/dL (6.6-8.7) L Albumin 4.4 g/dL (3.5-5.2) Globulin 1.5 g/dL Albumin/Globulin Ratio 2.9 (1.0-2.7) H Lipase 44 U/L (< 60) Urine Color Brown Urine Appearance Slightly cloudy Urine pH 5 (4.5-8.0) Urine Specific [place] 1.005 (1.005-1.035) Urine Protein 2+ (NEGATIVE) H Urine Glucose (UA) Negative (NEGATIVE) Urine Ketones Negative (NEGATIVE) Urine Occult Blood 5+ (NEGATIVE) H Urine Nitrite Negative (NEGATIVE) Urine Bilirubin 1+ (NEGATIVE) H Urine Ictotest Negative Urine Urobilinogen 8 MG/DL (0.0-1.0) H Urine Leukocyte Esterase 1+ (NEGATIVE) H Urine RBC 20-30 /HPF (0 - 0) H Urine WBC 5-10 /HPF (0 - 0) H Urine Squamous Epithelial Cells None /LPF (NONE/OCC) Urine Amorphous Sediment Few /LPF (NONE) H Urine Bacteria Moderate /HPF (NONE) H Ammonia 26 umol/L (16-60) Digoxin Level 1.8 ng/mL (0.5-2.0) Reticulocyte Count 3.8 % (0.0-2.0) H Fibrinogen 196 mg/dL (200-400) L Uric Acid 4.9 mg/dL (3.0-7.5) Iron Level 30 ug/dL (59-158) L Total Iron Binding Capacity 255 ug/dL (250-400) Percent Iron Saturation 12 % (15-50) L Unsaturated Iron Binding 225 ug/dL (112-346) Ferritin 511 ng/mL (10-230) H Lactate Dehydrogenase 852 U/L (135-230) H Vitamin B12 Level > 2000 pg/mL (211-946) H Hepatitis A IgM Antibody Pending Hepatitis B Surface Antigen Pending Hepatitis B Core IgM Antibody Pending Hepatitis C Antibody Pending HIV (1&2) Antibody Rapid Negative (NEGATIVE) Test 02/02/17 07:45 White Blood Count 10.7 K/UL (4.8-10.8) Red Blood Count 3.04 M/UL (4.70-6.10) L Hemoglobin 9.1 G/DL (14.2-18.0) L Hematocrit 27.8 % (42.0-52.0) L Mean Corpuscular Volume 91 FL (80-99) Mean Corpuscular Hemoglobin 29.9 PG (27.0-31.0) Mean Corpuscular Hemoglobin Concent 32.8 G/DL (32.0-36.0) Red Cell Distribution Width 16.8 % (11.6-14.8) H Platelet Count 132 K/UL (150-450) L Mean Platelet Volume 7.6 FL (6.5-10.1) Neutrophils (%) (Auto) 80.3 % (45.0-75.0) H Lymphocytes (%) (Auto) 10.4 % (20.0-45.0) L Monocytes (%) (Auto) 8.7 % (1.0-10.0) Eosinophils (%) (Auto) 0.2 % (0.0-3.0) Basophils (%) (Auto) 0.4 % (0.0-2.0) Prothrombin Time 17.6 SEC (9.30-11.50) H Prothromb Time International Ratio 1.7 (0.9-1.1) H General Appearance: no apparent distress Head: normocephalic EENT: normal ENT inspection Neck: supple Respiratory: no respiratory distress Cardiovascular: normal rate Gastrointestinal: normal inspection, non tender, soft Rectal: deferred Neurologic: alert Skin: jaundice Lymphatic: normal inspection, no adenopathy Current Medications Current Medications Medications (Trade) Dose Ordered Sig/Benjy Route PRN Reason Start Time Stop Time Status Last Admin Dose Admin Acetaminophen (Tylenol) 650 mg Q4H PRN ORAL Mild Pain/Temp > 100.5 02/01/17 22:45 03/03/17 22:44 Apixaban (Eliquis) 2.5 mg BID ORAL 02/02/17 18:00 03/04/17 17:59 Aspirin (ASA) 81 mg DAILY NG 02/02/17 11:30 03/04/17 11:29 Atorvastatin Calcium (Lipitor) 5 mg BEDTIME ORAL 02/02/17 21:00 03/04/17 20:59 Aztreonam 1 gm/ Dextrose 55 ml @ 110 mls/hr Q12H IVPB 02/02/17 15:00 02/08/17 15:29 Docusate Sodium (Colace) 100 mg TWICE A DAY ORAL 02/02/17 18:00 03/04/17 17:59 Finasteride (Proscar) 5 mg DAILY ORAL 02/03/17 09:00 03/05/17 08:59 Furosemide (Lasix) 20 mg DAILY ORAL 02/03/17 09:00 03/05/17 08:59 Iron Sucrose 100 mg/Sodium Chloride 60 ml @ 240 mls/hr BEDTIME IVPB 02/02/17 21:00 02/06/17 21:14 Lorazepam (Ativan) 0.5 mg Q4H PRN ORAL For Anxiety 02/02/17 11:15 02/09/17 11:14 Lorazepam (Ativan) 1 mg Q4H PRN ORAL Agitation 02/02/17 11:30 02/09/17 11:14 Metformin HCl (Glucophage) 500 mg TWICE A DAY ORAL 02/02/17 18:00 03/04/17 17:59 Metronidazole (Flagyl) 500 mg Q8HR ORAL 02/02/17 10:45 02/09/17 10:44 Pantoprazole (Protonix) 40 mg BEFORE LUNCH ORAL 02/02/17 11:30 03/04/17 11:29 Tamsulosin HCl (Flomax) 0.4 mg QHS ORAL 02/02/17 21:00 03/04/17 20:59 GI: Plan Problems: (1) LFT elevation (2) Anemia (3) Constipation Plan abdominal U/S reviewed >> gallbladder sludge, No evidence of bile duct dilation/ obstruction. Recommend HIDA. INR >> 1.7 iron deficiency >> venofer anemia work up OB stool r/o GI bleed per family request, they will like to see HIDA results prior to MRCP pending MRCP monitor LFTs fu hep panel bowel regime monitor H&H, prn transfusions ppi fu labs Discussed with Dr. Wall. Thank you for referring this patient, we will follow. MAEMELO 02/03/17 1204: History of Present Illness General Reason for Hospitalization: Syncope Present Illness Home Meds Reported Medications Acetaminophen* (TYLENOL EXTRA STRENGTH*) 500 Mg Tablet, 500 MG ORAL TAKE 2 TABLETS IN THE MORNING AND 2 TABLETS AT NIGHT AND NEEDED FOR PAIN EVERY 6 HOURS 02/01/17 Lorazepam* (LORAZEPAM*) 0.5 Mg Tablet, 0.5 MG ORAL Y for Agitation, TAB 02/01/17 Cholecalciferol (Vitamin D3)* (VITAMIN D*) 1,000 Unit Tablet, 2000 UNITS ORAL DAILY, #30 TAB 0 Refills 02/01/17 Verapamil HCl (Verapamil Sr) 180 Mg Cap24h.pel, 180 MG PO DAILY, CAP 02/01/17 Tamsulosin Hcl (TAMSULOSIN HCL*) 0.4 Mg Cap.er.24h, 0.4 MG ORAL, CAP TAKE ONE TABLET BY MOUTH ONCE DAILY AFTER BREAKFAST 02/01/17 Simvastatin (ZOCOR) 10 Mg Tablet, 10 MG ORAL BEDTIME, TAB 02/01/17 Vit A/Vit C/Vit E/Zinc/Copper (PRESERVISION AREDS SOFTGEL) 1 Each Capsule, 1 EACH PO BID, CAP 02/01/17-17/Nettle/[place]k/Saw Palmet (PROSTATE THERAPY SOFTGEL) 1 Each Capsule, 1 EACH PO BEDTIME, CAP 02/01/17 Pantoprazole* (PANTOPRAZOLE*) 40 Mg Tablet.dr, 40 MG ORAL BEFORE LUNCH, TAB 02/01/17 Multivitamins* (MULTIVITAMINS*) 1 Each Tablet, 1 TAB ORAL DAILY, TAB 0 Refills 02/01/17 Metformin Hcl* (METFORMIN HCL*) 500 Mg Tablet, 500 MG ORAL TWICE A DAY, TAB 02/01/17 Loratadine (LORATADINE) 10 Mg Capsule, 10 MG PO BEDTIME, CAP 02/01/17 Glucosamine Hcl (GLUCOSAMINE HCL) 500 Mg Tablet, 500 MG PO BID, TAB 02/01/17 Furosemide* (LASIX*) 20 Mg Tablet, 20 MG ORAL DAILY, TAB 02/01/17 Finasteride* (PROSCAR*) 5 Mg Tablet, 5 MG ORAL DAILY, #30 TAB 0 Refills TAKE 1 TABLET BY MOUTH ONCE DAILY AFTER BREAKFAST 02/01/17 Ferrous Sulfate* (FERROUS SULFATE*) 325 Mg Tablet, 325 MG ORAL TWICE A DAY, #60 TAB 0 Refills 02/01/17 Docusate Sodium* (DOCUSATE SODIUM*) 100 Mg Capsule, 100 MG ORAL TWICE A DAY, CAP 02/01/17 Digoxin* (DIGOXIN*) 0.125 Mg/2.5 Ml Solution, 0.125 MG ORAL DAILY, ML 0 Refills 02/01/17 Calcium Carbonate/Vitamin D3 (CALCIUM 600 + VIT D 200 TABLET) 1 Each Tablet, 1 EACH PO BID, TAB 02/01/17 Aspirin* (ASPIR 81*) 81 Mg Tablet.dr, 81 MG ORAL DAILY, TAB 02/01/17 Apixaban (ELIQUIS) 2.5 Mg Tablet, 2.5 MG PO BID, TAB 02/01/17 Allergies: Coded Allergies: CLINDAMYCIN (Unverified Allergy, Unknown, 02/01/17) DOXYCYCLINE (Unverified Allergy, Unknown, 02/01/17) PENICILLINS (Unverified Allergy, Unknown, 02/01/17) SULFA (SULFONAMIDE ANTIBIOTICS) (Unverified Allergy, Unknown, 02/01/17) GI: Plan Plan The patient was seen and examined at bedside and all new and available data was reviewed in the patients chart. I agree with the above findings, impression and plan. (Patient seen earlier today. Signature stamp does not reflect patient encounter time.). -Opal Olivarez MDh Dhaval Conner Feb 02, 2017 11:37 MELO WALL Feb 03, 2017 12:04
[2017-02-02] MEDS ORDERED: Esomeprazole sodium 40mg vial IVP ONE (11:45)
[2017-02-02 12:00] VITALS: BP 116/62
[2017-02-02] MEDS ORDERED: Morphine Sulfate 2mg/ml Inj IVP PRN (12:00)
[2017-02-02] MEDS ORDERED: Morphine Sulfate 2mg/ml Inj IVP ONE (12:00)
[2017-02-02] MEDS: metroNIDAZOLE 500mg tab ORAL SCH ×3 (12:20→21:16)
[2017-02-02] MEDS: Aspirin Baby 81mg NG SCH (12:20)
[2017-02-02] MEDS: Aztreonam Inj 1 GM in D5W 55 ML IVPB SCH (14:21)
--- NOTE | 2017-02-02 15:22 | Cardiology Report ---
APPROVED REPORT EKG Measurement Heart [id number] Atrial fibrillation Anteroseptal infarct, age undetermined Marked ST abnormality, possible inferior subendocardial injury Abnormal ECG
--- NOTE | 2017-02-02 15:35 | Cardiac Electrophysiology PN ---
Subjective Subjective [id number]. DW daughter at bedside Objective Last 24 Hour Vital Signs Date Time Temp Pulse Resp B/P (MAP) Pulse Ox O2 Delivery O2 Flow Rate FiO2 02/02/17 12:00 97.5 78 20 116/62 98 Nasal Cannula 2.0 02/02/17 11:55 77 02/02/17 08:00 69 02/02/17 08:00 97.8 69 20 118/57 96 Nasal Cannula 2.0 02/02/17 04:00 87 02/02/17 00:00 86 02/02/17 00:00 99.9 94 18 114/62 95 Nasal Cannula 2.0 02/01/17 20:57 97.9 93 24 130/57 100 Nasal Cannula 2.0 02/01/17 19:13 97.9 93 24 130/57 100 Nasal Cannula 2.0 02/01/17 18:03 97.9 90 24 135/51 100 Nasal Cannula 2.0 02/01/17 17:22 97.9 88 16 130/80 98 Room Air Intake and Output 02/02/17 02/03/17 19:00 07:00 Intake Total 120 ml Balance 120 ml Intake Oral 120 ml # Bowel Movements 1 Laboratory Tests Test 02/01/17 17:45 02/01/17 19:00 02/01/17 19:35 02/01/17 21:50 White Blood Count 8.8 K/UL (4.8-10.8) Red Blood Count 3.20 M/UL (4.70-6.10) L Hemoglobin 10.2 G/DL (14.2-18.0) L Hematocrit 29.2 % (42.0-52.0) L Mean Corpuscular Volume 91 FL (80-99) Mean Corpuscular Hemoglobin 31.8 PG (27.0-31.0) H Mean Corpuscular Hemoglobin Concent 34.7 G/DL (32.0-36.0) Red Cell Distribution Width 17.3 % (11.6-14.8) H Platelet Count 124 K/UL (150-450) L Mean Platelet Volume 7.9 FL (6.5-10.1) Neutrophils (%) (Auto) 81.2 % (45.0-75.0) H Lymphocytes (%) (Auto) 13.1 % (20.0-45.0) L Monocytes (%) (Auto) 5.2 % (1.0-10.0) Eosinophils (%) (Auto) 0.2 % (0.0-3.0) Basophils (%) (Auto) 0.4 % (0.0-2.0) Differential Total Cells Counted 100 Neutrophils % (Manual) 74 % (45-75) Lymphocytes % (Manual) 15 % (20-45) L Monocytes % (Manual) 7 % (1-10) Eosinophils % (Manual) 0 % (0-3) Basophils % (Manual) 0 % (0-2) Band Neutrophils 4 % (0-8) Platelet Estimate Decreased L Platelet Morphology Normal Hypochromasia 1+ Anisocytosis 1+ Prothrombin Time 14.3 SEC (9.30-11.50) H 17.9 SEC (9.30-11.50) H Prothromb Time International Ratio 1.4 (0.9-1.1) H 1.7 (0.9-1.1) H Activated Partial Thromboplast Time 28 SEC (23-33) Sodium Level 138 mEQ/L (135-145) Potassium Level 4.3 mEQ/L (3.4-4.9) Chloride Level 97 mEQ/L (98-107) L Carbon Dioxide Level 26 mEQ/L (20-30) Anion Gap 15 (5-15) Blood Urea Nitrogen 22 mg/dL (7-23) Creatinine 1.0 mg/dL (0.7-1.2) Estimat Glomerular Filtration Rate mL/min (>60) Glucose Level 136 mg/dL (74-106) H Lactic Acid Level 3.60 mmol/L (0.66-2.22) H 2.40 mmol/L (0.66-2.22) H Calcium Level 9.4 mg/dL (8.6-10.2) Total Bilirubin 5.1 mg/dL (0.0-1.2) H Direct Bilirubin 3.1 mg/dL (0.1-0.3) H Aspartate Amino Transf (AST/SGOT) 521 U/L (5-40) H Alanine Aminotransferase (ALT/SGPT) 279 U/L (3-41) H Alkaline Phosphatase 247 U/L (40-129) H Total Creatine Kinase 47 U/L (38-174) Creatine Kinase MB 4.0 ng/mL (< 6.7) Creatine Kinase MB Relative Index 8.5 Troponin I < 0.30 ng/mL (<=0.30) Pro-B-Type Natriuretic Peptide 8430 pg/mL (0-450) H Total Protein 5.9 g/dL (6.6-8.7) L Albumin 4.4 g/dL (3.5-5.2) Globulin 1.5 g/dL Albumin/Globulin Ratio 2.9 (1.0-2.7) H Lipase 44 U/L (< 60) Urine Color Brown Urine Appearance Slightly cloudy Urine pH 5 (4.5-8.0) Urine Specific [place] 1.005 (1.005-1.035) Urine Protein 2+ (NEGATIVE) H Urine Glucose (UA) Negative (NEGATIVE) Urine Ketones Negative (NEGATIVE) Urine Occult Blood 5+ (NEGATIVE) H Urine Nitrite Negative (NEGATIVE) Urine Bilirubin 1+ (NEGATIVE) H Urine Ictotest Negative Urine Urobilinogen 8 MG/DL (0.0-1.0) H Urine Leukocyte Esterase 1+ (NEGATIVE) H Urine RBC 20-30 /HPF (0 - 0) H Urine WBC 5-10 /HPF (0 - 0) H Urine Squamous Epithelial Cells None /LPF (NONE/OCC) Urine Amorphous Sediment Few /LPF (NONE) H Urine Bacteria Moderate /HPF (NONE) H Ammonia 26 umol/L (16-60) Digoxin Level 1.8 ng/mL (0.5-2.0) Reticulocyte Count 3.8 % (0.0-2.0) H Fibrinogen 196 mg/dL (200-400) L Uric Acid 4.9 mg/dL (3.0-7.5) Iron Level 30 ug/dL (59-158) L Total Iron Binding Capacity 255 ug/dL (250-400) Percent Iron Saturation 12 % (15-50) L Unsaturated Iron Binding 225 ug/dL (112-346) Ferritin 511 ng/mL (10-230) H Lactate Dehydrogenase 852 U/L (135-230) H Vitamin B12 Level > 2000 pg/mL (211-946) H Hepatitis A IgM Antibody Pending Hepatitis B Surface Antigen Pending Hepatitis B Core IgM Antibody Pending Hepatitis C Antibody Pending HIV (1&2) Antibody Rapid Negative (NEGATIVE) Test 02/02/17 07:45 02/02/17 12:00 White Blood Count 10.7 K/UL (4.8-10.8) Red Blood Count 3.04 M/UL (4.70-6.10) L Hemoglobin 9.1 G/DL (14.2-18.0) L Hematocrit 27.8 % (42.0-52.0) L Mean Corpuscular Volume 91 FL (80-99) Mean Corpuscular Hemoglobin 29.9 PG (27.0-31.0) Mean Corpuscular Hemoglobin Concent 32.8 G/DL (32.0-36.0) Red Cell Distribution Width 16.8 % (11.6-14.8) H Platelet Count 132 K/UL (150-450) L Mean Platelet Volume 7.6 FL (6.5-10.1) Neutrophils (%) (Auto) 80.3 % (45.0-75.0) H Lymphocytes (%) (Auto) 10.4 % (20.0-45.0) L Monocytes (%) (Auto) 8.7 % (1.0-10.0) Eosinophils (%) (Auto) 0.2 % (0.0-3.0) Basophils (%) (Auto) 0.4 % (0.0-2.0) Prothrombin Time 17.6 SEC (9.30-11.50) H Prothromb Time International Ratio 1.7 (0.9-1.1) H Stool Occult Blood Negative (NEGATIVE) Microbiology Date/Time Source Procedure Growth Status 02/01/17 19:00 Urine,Clean Catch Urine Culture - Preliminary Resulted ADAM العراقي Feb 02, 2017 15:35
[2017-02-02 15:59] VITALS: BP 105/45
[2017-02-02] MEDS ORDERED: Tubing IV Secondary IV ONE (16:32)
[2017-02-02] MEDS ORDERED: NS 275ml ONE (16:32)
[2017-02-02] MEDS ORDERED: metFORMIN 500mg tab ORAL SCH (18:00)
[2017-02-02] MEDS: Eliquis 2.5mg tablet ORAL SCH (18:27)
[2017-02-02] MEDS: Docusate 100mg cap ORAL SCH (18:27)
[2017-02-02 20:00] VITALS: BP 118/57
[2017-02-02] MEDS: LORazepam 0.5mg tab ORAL PRN (21:16)
[2017-02-02] MEDS: Tamsulosin 0.4mg cap ORAL SCH (21:17)
[2017-02-02] MEDS: Miralax 17gm pkt ORAL SCH ×2 (21:17→21:23)
[2017-02-02] MEDS: Iron Sucrose 100 MG in NS 55 ML IVPB SCH (21:17)
--- NOTE | 2017-02-02 23:46 | History and Physical Report ---
DATE OF ADMISSION: 02/01/2017 REASON FOR ADMISSION: Possible syncope. HISTORY OF PRESENT ILLNESS: The patient is unable to give report at this point, also further report is obtained from the DPOA sitting at the bedside. According to her, when she tried to help him with a walker yesterday, he almost fell to the floor and could not get up. He was dizzy. The patient was found to have UTI and possibly rule out acute cholecystitis. The patient has elevated LFTs and the patient is jaundiced. The patient has also elevated bilirubin. The patient denies vomiting. Denies any abdominal pain. Denies shortness of breath. Denies cough. The patient does have bouts of somnolence that are interspersed with alertness and the patient actually responds at that time. Again, the patient has received recent transfusion at [facility]. The patient has history of atrial fibrillation and history of CHF as well. The patient recently had a transfusion at [facility]. PAST MEDICAL HISTORY: Significant for atrial fibrillation, , iron-deficiency anemia, BPH, CHF, allergic rhinitis, NIDDM, GERD, hyperlipidemia, and hypertension. PAST SURGICAL HISTORY: Knee surgery and back surgery. MEDICATIONS: Eliquis, Tylenol, aspirin, calcium with vitamin D, digoxin, Colace, ferrous sulfate, finasteride, furosemide, loratadine, metformin, Protonix, simvastatin, Flomax, verapamil, and multivitamin. ALLERGIES: Clindamycin, doxycycline, penicillin, and sulfa. SOCIAL HISTORY: The patient has history of smoking. No history of drug or alcohol abuse. FAMILY HISTORY: Noncontributory. REVIEW OF SYSTEMS: HEENT: Denies headaches. Respiratory: Denies shortness of breath. Denies cough. Cardiovascular: Denies chest pain. Denies orthopnea. Gastrointestinal: Denies nausea, vomiting, or diarrhea. Extremities: Denies pain. Central Nervous System: Denies change in vision or speech pattern, however, he is a relatively poor historian at this point. PHYSICAL EXAMINATION: VITAL SIGNS: Temperature is 97.9 degrees, pulse 92, and blood pressure 130/57. HEENT: PERRLA. NECK: Supple. No lymphadenopathy. CHEST: Clear to auscultation. CARDIOVASCULAR: Irregularly irregular. GASTROINTESTINAL: Soft. Distended, however, nontender. Positive bowel sounds. No organomegaly. The patient has jaundice. EXTREMITIES: A 1+ edema. Reflexes equal on both sides. NEUROLOGIC: Oriented to name only with generalized weakness. LABORATORY DATA: WBC of 8.8, hemoglobin 10.2, and platelets 124,000. INR was 1.4. Digoxin was 1.8. The patient also has elevated bilirubin and elevated LFTs. ASSESSMENT AND PLAN: Rule out acute cholecystitis, urinary tract infection, possible syncopal episode. I have asked Dr. Gomez, Dr. Brown, Dr. Smith, Dr. Russ, and Dr. Barrera to see the patient for the evaluation of the anticoagulant as well as for the evaluation of syncope, possible acute cholecystitis, possible urinary tract infection as well as rule out dehydration. Latesha Persaud M.D. DR: BRYCE JOB#: [id number] CC:
[2017-02-03] MEDS: NovoLOG Insulin Flexpen SUBQ SCH ×5 (00:08→20:41)
[2017-02-03] MEDS: Aztreonam Inj 1 GM in D5W 55 ML IVPB SCH ×2 (02:43→15:03)
[2017-02-03 04:00] VITALS: BP 130/58
--- NOTE | 2017-02-03 05:45 | Consultation ---
DATE OF CONSULTATION: INFECTIOUS DISEASE CONSULTATION REQUESTING PHYSICIAN: Latesha Persaud M.D. REASON FOR CONSULTATION: Urine tract infection, possible cholecystitis. Recommendation for antibiotics therapy for patient with multiple antibiotics allergy. HISTORY OF PRESENT ILLNESS: The patient is an 89-year-old male with a complicated past medical history including congestive heart failure, atrial fibrillation, anemia, and cellulitis, which he has been treated for at [facility], had recent admission due to severe anemia and received blood transfusion over there and was brought in to [facility] for syncopal episode, which was witnessed by his daughter. As per his daughter, the patient was getting up from the toilet seat to the sink to wash his hands, he became lightheaded, dizzy and almost passed out. She was able to hold him and lay him down on the floor. The patient seems to be hypotensive at that time when the paramedics arrived, but she does not remember exact blood pressure he had. So, he was brought in to [facility] for evaluation due to no bed availability at [facility]. In ED, the patient had extensive workup including urinalysis, which showed evidence of infection. He received one dose of amikacin and I was consulted by the primary provider for antibiotics treatment and further management for also possible cholecystitis, which was questioned on the ultrasound report. As of note, the patient is poor historian, cannot provide any history. History was mainly obtained from the daughter at the bedside and the medical records. PAST MEDICAL HISTORY: Significant for CHF, atrial fibrillation, hypertension and anemia. PAST SURGICAL HISTORY: Unknown. MEDICATIONS: The patient received amikacin in the emergency room. For the rest of his medications, please refer to [facility]. ALLERGIES: He is allergic to clindamycin, doxycycline, penicillin and sulfa. SOCIAL HISTORY: He lives at home with daughter. No recent drugs, tobacco or alcohol. FAMILY HISTORY: Noncontributory. REVIEW OF SYSTEMS: Unable to obtain at this point. The patient is poor historian, cannot provide any history. PHYSICAL EXAMINATION: GENERAL: The patient is an elderly male, cachectic, up in chair, alert, respond to verbal commands, not in distress. VITAL SIGNS: Temperature 99.9 degrees, pulse 94, respirations 18, blood pressure 114/62, and pulse oximetry 95% on two liters nasal cannula. HEENT: Normocephalic and atraumatic. Pupils reactive to light. Dry oral mucosa. No exudate. NECK: Supple. No lymphadenopathy. CARDIOVASCULAR: Regular rate and rhythm. No murmur. No gallop. LUNGS: Clear bilaterally. No wheezing or rhonchi. Normal breathing efforts. ABDOMEN: Soft, nontender, and nondistended. Positive bowel sounds. No hepatosplenomegaly or ascites. EXTREMITIES: Chronic dermatitis in both legs. No edema or cyanosis. No clubbing. LABORATORY AND DIAGNOSTIC DATA: Labs showed white count of 8.8, hemoglobin of 10.2, hematocrit of 29.2, and platelet count of 124,000. BUN of 22 and creatinine of 1. AST of 521, ALT of 279, and alkaline phosphatase of 247. Urinalysis was negative for nitrate, positive for leukocyte esterase, WBC 5-10, and moderate amount of bacteria. Stool guaiac negative. Hepatitis panel pending and HIV is pending. Imaging, chest x-ray showed no acute pathology or infiltrate. Abdominal ultrasound showed a gallbladder sludge intermixed small stone, not excludable. Mural thickening may be due to adjacent liver disease, cholecystitis not excludable, although sonographic Zambrano sign negative. No evidence of bile duct dilatation. ASSESSMENT AND RECOMMENDATION: 1. Urinary tract infection. We will start the patient on aztreonam empirically and send urine culture. 2. Possible cholecystitis. The patient already on aztreonam. We will add Flagyl, pending further workup by Gastroenterology. 3. Sepsis due to the above. Continue aztreonam and Flagyl. Monitor blood culture. 4. Syncope, suspect orthostatic. Continue property assessment monitor. Cardiac evaluation is pending. Thank you. Brandy Russ M.D. DR: JODIE JOB#: [id number] CC:
[2017-02-03] MEDS ORDERED: Tamsulosin 0.4mg cap ORAL SCH (06:30)
[2017-02-03] MEDS: metroNIDAZOLE 500mg tab ORAL SCH ×3 (06:45→21:02)
--- NOTE | 2017-02-03 07:15 | Consultation ---
DATE OF CONSULTATION: 02/02/2017 CARDIAC ELECTROPHYSIOLOGY CONSULTATION REFERRING PHYSICIAN: Latesha Persaud M.D. REASON FOR THE CONSULTATION: Management of hypertension and atrial fibrillation. HISTORY OF PRESENT ILLNESS: The patient is an 89-year-old gentleman with history of hypertension , chronic atrial fibrillation, and congestive heart failure with diastolic dysfunction as well as history of severe anemia. The patient was recently at [facility]. [facility], the patient was evaluated and was discharged on Eliquis, half the dose of 2.5 mg b.i.d. The patient is supposed to have followup with the sr technical sales consultant, for evaluation. The patient came to the emergency room after a questionable syncopal episode. The patient is unable to provide any meaningful information. PAST MEDICAL HISTORY: 1. Hypertension. 2. Chronic atrial fibrillation. 3. Moderate aortic stenosis. 4. COPD. 5. Type 2 diabetes. 6. Degenerative joint disease. 7. Hearing deficit. 8. Pulmonary hypertension. ALLERGIES: He is allergic to clindamycin, doxycycline, penicillin, and sulfa. SOCIAL HISTORY: He is . Does not smoke or drink alcohol. He is a former smoker though. REVIEW OF SYSTEMS: Limited PHYSICAL EXAMINATION: VITAL SIGNS: Blood pressure is 116/62, pulse 78, respirations 18, and temperature 97.5 degrees. HEAD AND NECK: No JVD. LUNGS: Decreased breath sounds. CARDIOVASCULAR: Irregularly irregular S1 and S2. No gallop or murmur. ABDOMEN: Soft. EXTREMITIES: There is 1+ pitting edema. LABORATORY AND DIAGNOSTIC DATA: White count of 10.2, hemoglobin 9.1, hematocrit 27.8, and platelet count of 132,000. His lactic acid was 3.6 down to 2.4. Sodium is 138, potassium is 4.3, BUN of 22, creatinine 1, and glucose of 136. BNP is 8430. ASSESSMENT AND PLAN: 1. Atrial fibrillation, the rate is currently controlled. I will check a digoxin level and if digoxin level is okay, I will resume the patient's digoxin that he was on. I will also start the patient on daily, the patient was also at home. 2. Hypertension. Continue 3. Congestive heart failure with diastolic dysfunction with elevated BNP. Continue Lasix 40 mg daily. 4. Hyperbilirubinemia with bilirubin of 5.1 and direct bilirubin 3.1 with AST 121 and ALT 279. The patient's ammonia level is only 26. Further evaluation by Dr. Smith. 5. History of anemia status post blood transfusion. Further evaluation by Dr. Smith. Thank very much, Dr. Persaud, for allowing me to participate in the care of this patient. Please do not hesitate to contact for any questions regarding my evaluation. Vini Brown M.D. DR: PATT JOB#: [id number] CC:
[2017-02-03 07:23] LABS: EOSINOPHILS % (AUTO) 1.5 % (0.0-3.0); LYMPHOCYTES % (AUTO) 9.7 % (20.0-45.0); MEAN CORPUSCULAR HEMOGLOBIN 29.9 PG (27.0-31.0); MEAN CORPUSCULAR HGB CONC 32.3 G/DL (32.0-36.0); MEAN CORPUSCULAR VOLUME 93 FL (80-99); MEAN PLATELET VOLUME 8.1 FL (6.5-10.1); MONOCYTES % (AUTO) 9.8 % (1.0-10.0); NEUTROPHILS % (AUTO) 77.9 % (45.0-75.0); PLATELET COUNT 133 K/UL (150-450); RED BLOOD COUNT 3.15 M/UL (4.70-6.10); RED CELL DISTRIBUTION WIDTH 17.2 % (11.6-14.8); WHITE BLOOD COUNT 6.6 K/UL (4.8-10.8)
[2017-02-03 07:34] LABS: AMMONIA 24 umol/L (16-60)
[2017-02-03 07:35] LABS: CRP QUANT 9.9 mg/dL (< 0.5); MAGNESIUM 1.9 mg/dL (1.7-2.5); PHOSPHORUS 3.2 mg/dL (2.5-4.8); URIC ACID 4.3 mg/dL (3.0-7.5)
[2017-02-03 07:37] LABS: ALANINE AMINOTRANSFERASE 317 U/L (3-41); ALBUMIN/GLOBULIN RATIO 1.6 (1.0-2.7); AMYLASE 36 U/L (10-110); ANION GAP 9 (5-15); ASPARTATE AMINO TRANSFERASE 188 U/L (5-40); CALCIUM 8.9 mg/dL (8.6-10.2); CARBON DIOXIDE 30 mEQ/L (20-30); CHLORIDE 95 mEQ/L (98-107); CHOLESTEROL 80 mg/dL (< 200); CHOLESTEROL/HDL RATIO 2.9 (3.3-4.4); HEMOLYSIS 5; LDL CHOLESTEROL (CALC.) 36 mg/dL (60-99); POTASSIUM 3.9 mEQ/L (3.4-4.9); SODIUM 134 mEQ/L (135-145); TOTAL PROTEIN 5.8 g/dL (6.6-8.7)
[2017-02-03 07:41] LABS: HEMOGLOBIN A1C 5.4 % (< 6.0)
[2017-02-03 07:48] LABS: THYROID STIMULATING HORMONE 0.922 uIU/mL (0.300-4.500)
[2017-02-03 07:50] LABS: INR 1.5 (0.9-1.1); PROTHROMBIN TIME 16.1 SEC (9.30-11.50)
[2017-02-03 08:00] VITALS: BP 129/62
[2017-02-03 08:22] LABS: BILIRUBIN,DIRECT 2.1 mg/dL (0.1-0.3)
[2017-02-03] MEDS: Aspirin Baby 81mg NG SCH (08:52)
[2017-02-03] MEDS: Docusate 100mg cap ORAL SCH ×2 (08:52→17:37)
[2017-02-03] MEDS: Eliquis 2.5mg tablet ORAL SCH ×2 (08:52→17:37)
[2017-02-03] MEDS ORDERED: Aspirin EC 81mg tab ORAL SCH (09:00)
[2017-02-03] MEDS ORDERED: Verapamil 180mg SR tab ORAL SCH (09:00)
[2017-02-03] MEDS: Verapamil 180mg SR tab ORAL SCH ×2 (09:00→11:32)
--- NOTE | 2017-02-03 09:46 | Diagnostic Imaging Report ---
Indication: Abdominal pain Technique: Continuous helical transaxial imaging of the abdomen and pelvis was obtained from the lung bases to the pubic symphysis during intravenous contrast administration. Coronal 2-D reformats were also obtained. Study obtained in a Siemens sensation [address] Total Dose length Product (DLP): [address] Dose Index Volume (CTDIvol): 20 mGy Comparison: None Findings: Moderate-sized bilateral pleural effusions are present. There is a moderate pericardial effusion. Calcification of the mitral valve noted. Calcification of the aorta and coronary arteries demonstrated. Posterior basal atelectasis is present. Mild patchy groundglass opacities noted within the visualized lungs. There is a nonobstructive stone in the lower pole of the right kidney measuring 8 mm. There is enhancement of the gallbladder wall. There is no definite gallstones seen on this exam. There are liver cysts and multiple cysts within the right kidney. There is narrowing of intervertebral discs and accompanying endplate osteophyte formation. Hypertrophied facet joints also demonstrated.. Prostate hypertrophy noted within the prostate gland measuring 6.3 x 5.0 x 6.5 cm. Few diverticula noted in the colon. There is indeterminate cysts versus mass in the right kidney measuring 2.2 cm. This mass is higher in attenuation than the other cysts. This could be on the basis of a cystic lesion with internal protein or hemorrhage. This could be on the basis of this being a solid mass. Further characterization with a repeat CT done in a dynamic fashion with be helpful. Other ways to evaluate this further include MRI or ultrasound. Impression: Moderate bilateral pleural effusions with associated posterior basal atelectasis. Mild to moderate pericardial effusion Atherosclerotic disease. Nonobstructive 8 mm stone in the right kidney. Enhancement of the gallbladder wall. Please correlate clinically. Prostate hypertrophy 2.2 cm indeterminate cyst versus mass in the right kidney. Ultrasound or MR or repeat CT done with and without contrast in a dynamic fashion suggested for further evaluation. Multiple cysts within the liver and right kidney. Spondylosis. Diverticulosis of the colon. The CT scanner at [facility] is accredited by the [employer] and the scans are performed using dose optimization techniques as appropriate to a performed exam including Automatic Exposure control.
--- NOTE | 2017-02-03 10:58 | GI Progress Note ---
Assessment/Plan Problems: (1) Constipation ICD Codes: K59.00 - Constipation, unspecified SNOMED: 88060557 (2) LFT elevation ICD Codes: R79.89 - Other specified abnormal findings of blood chemistry SNOMED: 901172891 (3) Anemia ICD Codes: D64.9 - Anemia, unspecified SNOMED: 843866453 (4) Sepsis ICD Codes: A41.9 - Sepsis, unspecified organism SNOMED: 27927331 Status: unchanged Status Narrative Discussed with Dr. Smith. Assessment/Plan CT Abdomen Pelvis w/Contrast reviewed >> NO definite gallstones. liver cysts. diverticulosis of colon, see full report. abdominal U/S reviewed >> gallbladder sludge, No evidence of bile duct dilation/ obstruction. >> will defer HIDA INR >> 1.7 iron deficiency >> venofer OB stool >> negative hepatitis panel >> negative per family request >> no invasive procedures fu OB stool x 2 monitor LFTs, downtrending bowel regime probiotics added monitor H&H, prn transfusions ppi fu labs The patient was seen and examined at bedside and all new and available data was reviewed in the patients chart. I agree with the above findings, impression and plan. (Patient seen earlier today. Signature stamp does not reflect patient encounter time.). -Camden Smith MD Subjective Subjective limited Objective Last 24 Hour Vital Signs Date Time Temp Pulse Resp B/P (MAP) Pulse Ox O2 Delivery O2 Flow Rate FiO2 02/03/17 08:00 65 02/03/17 08:00 98.0 104 22 129/62 96 Room Air 02/03/17 04:00 98.3 58 20 130/58 95 Nasal Cannula 1.5 02/03/17 04:00 74 02/03/17 00:00 56 02/02/17 20:00 70 02/02/17 20:00 98.2 78 20 118/57 98 Nasal Cannula 1.5 02/02/17 15:59 97.2 60 20 105/45 Nasal Cannula 2.0 02/02/17 15:17 72 02/02/17 12:00 97.5 78 20 116/62 98 Nasal Cannula 2.0 02/02/17 11:55 77 Laboratory Tests Test 02/02/17 12:00 02/03/17 07:10 Stool Occult Blood Negative (NEGATIVE) White Blood Count 6.6 K/UL (4.8-10.8) Red Blood Count 3.15 M/UL (4.70-6.10) L Hemoglobin 9.4 G/DL (14.2-18.0) L Hematocrit 29.2 % (42.0-52.0) L Mean Corpuscular Volume 93 FL (80-99) Mean Corpuscular Hemoglobin 29.9 PG (27.0-31.0) Mean Corpuscular Hemoglobin Concent 32.3 G/DL (32.0-36.0) Red Cell Distribution Width 17.2 % (11.6-14.8) H Platelet Count 133 K/UL (150-450) L Mean Platelet Volume 8.1 FL (6.5-10.1) Neutrophils (%) (Auto) 77.9 % (45.0-75.0) H Lymphocytes (%) (Auto) 9.7 % (20.0-45.0) L Monocytes (%) (Auto) 9.8 % (1.0-10.0) Eosinophils (%) (Auto) 1.5 % (0.0-3.0) Basophils (%) (Auto) 1.0 % (0.0-2.0) Prothrombin Time 16.1 SEC (9.30-11.50) H Prothromb Time International Ratio 1.5 (0.9-1.1) H Sodium Level 134 mEQ/L (135-145) L Potassium Level 3.9 mEQ/L (3.4-4.9) Chloride Level 95 mEQ/L (98-107) L Carbon Dioxide Level 30 mEQ/L (20-30) Anion Gap 9 (5-15) Blood Urea Nitrogen 21 mg/dL (7-23) Creatinine 1.0 mg/dL (0.7-1.2) Estimat Glomerular Filtration Rate mL/min (>60) Glucose Level 142 mg/dL (74-106) H Hemoglobin A1c 5.4 % (< 6.0) Uric Acid 4.3 mg/dL (3.0-7.5) Calcium Level 8.9 mg/dL (8.6-10.2) Phosphorus Level 3.2 mg/dL (2.5-4.8) Magnesium Level 1.9 mg/dL (1.7-2.5) Total Bilirubin 4.3 mg/dL (0.0-1.2) H Direct Bilirubin 2.1 mg/dL (0.1-0.3) H Gamma Glutamyl Transpeptidase 257 U/L (8-61) H Aspartate Amino Transf (AST/SGOT) 188 U/L (5-40) H Alanine Aminotransferase (ALT/SGPT) 317 U/L (3-41) H Alkaline Phosphatase 215 U/L (40-129) H Ammonia 24 umol/L (16-60) C-Reactive Protein, Quantitative 9.9 mg/dL (< 0.5) H Pro-B-Type Natriuretic Peptide 7664 pg/mL (0-450) H Total Protein 5.8 g/dL (6.6-8.7) L Albumin 3.6 g/dL (3.5-5.2) Globulin 2.2 g/dL Albumin/Globulin Ratio 1.6 (1.0-2.7) Triglycerides Level 81 mg/dL (< 150) Cholesterol Level 80 mg/dL (< 200) LDL Cholesterol 36 mg/dL (60-99) L HDL Cholesterol 28 mg/dL (> 60) Cholesterol/HDL Ratio 2.9 (3.3-4.4) L Amylase Level 36 U/L (10-110) Alpha Fetoprotein Pending Carcinoembryonic Antigen 1.0 ng/mL Thyroid Stimulating Hormone (TSH) 0.922 uIU/mL (0.300-4.500) Free Thyroxine 1.23 ng/dL (0.86-1.85) Height (Feet): 6 Weight (Pounds): 140 General Appearance: no apparent distress, alert, confused Cardiovascular: normal rate Respiratory/Chest: normal breath sounds, no respiratory distress Abdominal Exam: normal bowel sounds, non tender, soft Extremities: other - worked with PT Tabby Cleveland N.P. Feb 03, 2017 10:58 CAMDEN SMITH Feb 03, 2017 12:06
[2017-02-03] MEDS ORDERED: Miralax 17gm pkt ORAL SCH (11:00)
[2017-02-03] MEDS ORDERED: Miralax 17gm pkt ORAL PRN (11:00)
--- NOTE | 2017-02-03 11:45 | General Progress Note ---
Assessment/Plan Status: stable - from renal stand Assessment/Plan status: UTI, Sepsis , high Lactic Syncope CHF At Fib DM Anemia High LFTs and Bili Plan: No renal issue- Per cardio- Neuro Watch electrolytes adjust BP meds per orders discussed with daughter Marielos House ROS Limited/Unobtainable: No Constitutional: Reports: malaise, weakness Allergies: Coded Allergies: CLINDAMYCIN (Unverified Allergy, Unknown, 02/01/17) DOXYCYCLINE (Unverified Allergy, Unknown, 02/01/17) PENICILLINS (Unverified Allergy, Unknown, 02/01/17) SULFA (SULFONAMIDE ANTIBIOTICS) (Unverified Allergy, Unknown, 02/01/17) Objective Last 24 Hour Vital Signs Date Time Temp Pulse Resp B/P (MAP) Pulse Ox O2 Delivery O2 Flow Rate FiO2 02/03/17 11:32 81 119/62 02/03/17 08:00 65 02/03/17 08:00 98.0 104 22 129/62 96 Room Air 02/03/17 04:00 98.3 58 20 130/58 95 Nasal Cannula 1.5 02/03/17 04:00 74 02/03/17 00:00 56 02/02/17 20:00 70 02/02/17 20:00 98.2 78 20 118/57 98 Nasal Cannula 1.5 02/02/17 15:59 97.2 60 20 105/45 Nasal Cannula 2.0 02/02/17 15:17 72 02/02/17 12:00 97.5 78 20 116/62 98 Nasal Cannula 2.0 02/02/17 11:55 77 Laboratory Tests 02/02/17 12:00: Stool Occult Blood Negative 02/03/17 07:10: White Blood Count 6.6, Red Blood Count 3.15L, Hemoglobin 9.4L, Hematocrit 29.2L , Mean Corpuscular Volume 93, Mean Corpuscular Hemoglobin 29.9, Mean Corpuscular Hemoglobin Concent 32.3, Red Cell Distribution Width 17.2H, Platelet Count 133L, Mean Platelet Volume 8.1, Neutrophils (%) (Auto) 77.9H, Lymphocytes (%) (Auto) 9.7L, Monocytes (%) (Auto) 9.8, Eosinophils (%) (Auto) 1.5, Basophils (%) (Auto) 1.0, Prothrombin Time 16.1H, Prothromb Time International Ratio 1.5H, Sodium Level 134L, Potassium Level 3.9, Chloride Level 95L, Carbon Dioxide Level 30, Anion Gap 9, Blood Urea Nitrogen 21, Creatinine 1.0, Estimat Glomerular Filtration Rate , Glucose Level 142H, Hemoglobin A1c 5.4, Uric Acid 4.3, Calcium Level 8.9, Phosphorus Level 3.2, Magnesium Level 1.9, Total Bilirubin 4.3H, Direct Bilirubin 2.1H, Gamma Glutamyl Transpeptidase 257H, Aspartate Amino Transf (AST/SGOT) 188H, Alanine Aminotransferase (ALT/SGPT) 317H, Alkaline Phosphatase 215H, Ammonia 24, C- Reactive Protein, Quantitative 9.9H, Pro-B-Type Natriuretic Peptide 7664H, Total Protein 5.8L, Albumin 3.6, Globulin 2.2, Albumin/Globulin Ratio 1.6, Triglycerides Level 81, Cholesterol Level 80, LDL Cholesterol 36L, HDL Cholesterol 28, Cholesterol/HDL Ratio 2.9L, Amylase Level 36, Alpha Fetoprotein [Pending], Carcinoembryonic Antigen 1.0, Thyroid Stimulating Hormone (TSH) 0.922 , Free Thyroxine 1.23 Height (Feet): 6 Weight (Pounds): 140 General Appearance: lethargic Cardiovascular: arrhythmia Respiratory/Chest: decreased breath sounds Abdomen: distended ANIA ALEJANDRE Feb 03, 2017 11:45
--- NOTE | 2017-02-03 11:54 | Endoscopy Procedure Note ---
Endoscopy Procedure Note Indication for Procedure: dysphagia, wt loss Procedures Performed: EGD Operative Findings/Diagnosis: gastritis Specimen: yes Pt Tolerated Procedure Well: Yes Estimated Blood Loss: none Anesthesiologist: armen Anesthesia: MAC Implant(s) used?: No 50 yrs or older w/o bx or poly: Not Applicable 10yrs. F/U not recommended: Not Applicable MELO WALL Feb 03, 2017 11:54
[2017-02-03 12:01] VITALS: BP 119/62
[2017-02-03] MEDS: Lactobacillus-GG tablet ORAL SCH ×2 (13:20→17:37)
[2017-02-03] MEDS ORDERED: Tubing IV Secondary IV ONE (13:52)
--- NOTE | 2017-02-03 14:02 | Cardiology Report ---
APPROVED REPORT EXAM: Two-dimensional and M-mode echocardiogram with Doppler and color Doppler. INDICATION Congestive Heart Failure M-Mode DIMENSIONS IVSd0.8 (0.7-1.1cm)Left Atrium (MM)5.0 (1.6-4.0cm) LVDd4.7 (3.5-5.6cm)Aortic Root2.8 (2.0-3.7cm) PWd1.4 (0.7-1.1cm)Aortic Cusp Exc.1.0 (1.5-2.0cm) LVDs2.4 (2.5-4.0cm) PWs2.2 cm Technically difficult study due to poor acoustic windows. Normal left ventricular chamber size, systolic function and wall motion. Left ventricular ejection fraction estimated to be 60-65%. Moderate to large left ventricular hypertrophy. Moderate to Large pericardial effusion. Right cardiac chamber sizes are within normal limits. Moderate left atrial enlargement by 2D. Aortic valve calcification with decreased cusp excursion c/w aortic stenosis. Thickened mitral valve leaflets with normal excursion. Mitral annulus and aortic root calcification. Pulmonic valve not well visualized. Normal tricuspid valve structure. IVC dilated at 2.6cm with no physiological collapse. A color flow and spectral Doppler study was performed and revealed: No aortic regurgitation. Peak aortic valve gradient of 52mmHg and a mean of 23mmHg. Aortic valve area 1.8 cm2 calculated by continuity equation. Moderate mitral regurgitation. Mitral P1/2 time of 95 m/s is compatible with a mitral valve area of 2.3 cm2 Peak mitral valve diastolic gradient of 8 mmHg and a mean gradient of 9mmHg Mild tricuspid regurgitation. Tricuspid systolic velocities suggests peak right ventricular systolic pressure of 52 mmHg Consistent with severe pulmonary hypertension.
--- NOTE | 2017-02-03 14:44 | Cardiac Electrophysiology PN ---
Assessment/Plan Assessment/Plan 1. Atrial fibrillation, the rate is currently controlled on Verapamil 180. Digoxin on hold as level was 1.8 yesterday. On Eliquis 2.5 bid. 2. Hypertension. Continue Verapamil 180 and Lasix 3. Congestive heart failure with diastolic dysfunction with elevated BNP. Continue Lasix 20 mg daily. 4. Hyperbilirubinemia with bilirubin of 5.1 and direct bilirubin 3.1 with AST 121 and ALT 279 and ammonia level is only 26. Further evaluation by Dr. Smith. 5. History of anemia status post blood transfusion. Further evaluation by Dr. Smith. RAMIREZ RN and daughter Subjective Subjective ALert today and walked with walker. Passed swallow eval and worked with the therapist. Echo showed EF 60%. RAMIREZ RN and daughter at bedside. Remained in atrial fib with controlled rate. Objective Last 24 Hour Vital Signs Date Time Temp Pulse Resp B/P (MAP) Pulse Ox O2 Delivery O2 Flow Rate FiO2 02/03/17 12:01 98.0 81 20 119/62 96 Room Air 02/03/17 12:00 82 02/03/17 11:32 81 119/62 02/03/17 08:00 65 02/03/17 08:00 98.0 104 22 129/62 96 Room Air 02/03/17 04:00 98.3 58 20 130/58 95 Nasal Cannula 1.5 02/03/17 04:00 74 02/03/17 00:00 56 02/02/17 20:00 70 02/02/17 20:00 98.2 78 20 118/57 98 Nasal Cannula 1.5 02/02/17 15:59 97.2 60 20 105/45 Nasal Cannula 2.0 02/02/17 15:17 72 Intake and Output 02/03/17 02/04/17 19:00 07:00 Intake Total 480 ml Balance 480 ml Intake Oral 480 ml Laboratory Tests Test 02/03/17 07:10 White Blood Count 6.6 K/UL (4.8-10.8) Red Blood Count 3.15 M/UL (4.70-6.10) L Hemoglobin 9.4 G/DL (14.2-18.0) L Hematocrit 29.2 % (42.0-52.0) L Mean Corpuscular Volume 93 FL (80-99) Mean Corpuscular Hemoglobin 29.9 PG (27.0-31.0) Mean Corpuscular Hemoglobin Concent 32.3 G/DL (32.0-36.0) Red Cell Distribution Width 17.2 % (11.6-14.8) H Platelet Count 133 K/UL (150-450) L Mean Platelet Volume 8.1 FL (6.5-10.1) Neutrophils (%) (Auto) 77.9 % (45.0-75.0) H Lymphocytes (%) (Auto) 9.7 % (20.0-45.0) L Monocytes (%) (Auto) 9.8 % (1.0-10.0) Eosinophils (%) (Auto) 1.5 % (0.0-3.0) Basophils (%) (Auto) 1.0 % (0.0-2.0) Prothrombin Time 16.1 SEC (9.30-11.50) H Prothromb Time International Ratio 1.5 (0.9-1.1) H Sodium Level 134 mEQ/L (135-145) L Potassium Level 3.9 mEQ/L (3.4-4.9) Chloride Level 95 mEQ/L (98-107) L Carbon Dioxide Level 30 mEQ/L (20-30) Anion Gap 9 (5-15) Blood Urea Nitrogen 21 mg/dL (7-23) Creatinine 1.0 mg/dL (0.7-1.2) Estimat Glomerular Filtration Rate mL/min (>60) Glucose Level 142 mg/dL (74-106) H Hemoglobin A1c 5.4 % (< 6.0) Uric Acid 4.3 mg/dL (3.0-7.5) Calcium Level 8.9 mg/dL (8.6-10.2) Phosphorus Level 3.2 mg/dL (2.5-4.8) Magnesium Level 1.9 mg/dL (1.7-2.5) Total Bilirubin 4.3 mg/dL (0.0-1.2) H Direct Bilirubin 2.1 mg/dL (0.1-0.3) H Gamma Glutamyl Transpeptidase 257 U/L (8-61) H Aspartate Amino Transf (AST/SGOT) 188 U/L (5-40) H Alanine Aminotransferase (ALT/SGPT) 317 U/L (3-41) H Alkaline Phosphatase 215 U/L (40-129) H Ammonia 24 umol/L (16-60) C-Reactive Protein, Quantitative 9.9 mg/dL (< 0.5) H Pro-B-Type Natriuretic Peptide 7664 pg/mL (0-450) H Total Protein 5.8 g/dL (6.6-8.7) L Albumin 3.6 g/dL (3.5-5.2) Globulin 2.2 g/dL Albumin/Globulin Ratio 1.6 (1.0-2.7) Triglycerides Level 81 mg/dL (< 150) Cholesterol Level 80 mg/dL (< 200) LDL Cholesterol 36 mg/dL (60-99) L HDL Cholesterol 28 mg/dL (> 60) Cholesterol/HDL Ratio 2.9 (3.3-4.4) L Amylase Level 36 U/L (10-110) Alpha Fetoprotein Pending Carcinoembryonic Antigen 1.0 ng/mL Thyroid Stimulating Hormone (TSH) 0.922 uIU/mL (0.300-4.500) Free Thyroxine 1.23 ng/dL (0.86-1.85) Microbiology Date/Time Source Procedure Growth Status 02/01/17 18:00 Blood Blood Culture - Preliminary NO GROWTH AFTER 24 HOURS Resulted 02/01/17 17:45 Blood Blood Culture - Preliminary NO GROWTH AFTER 24 HOURS Resulted 02/01/17 19:00 Urine,Clean Catch Urine Culture - Preliminary Gram Negative Bacillus 1 Resulted Objective HEAD AND NECK: No JVD.Icteric sclera. LUNGS: Decreased breath sounds. CARDIOVASCULAR: Irregularly irregular S1 and S2. 3/6 Systolic murmur aortic area.. ABDOMEN: Soft. EXTREMITIES: 1+ pitting edema. ADAM العراقي Feb 03, 2017 14:44
--- NOTE | 2017-02-03 15:58 | Infectious Diseases Prog Note ---
Assessment/Plan Problems: (1) UTI (urinary tract infection) Assessment & Plan: with gram negative rods, on aztreonam, pending urine culture (2) Cholecystitis Assessment & Plan: will need HIDA scan to confirm, GI is following , continue aztreonam and flagyl empirically (3) Syncope Assessment & Plan: suspect orthostatic, continue tele monitor, cardiology eval is pending (4) LFT elevation Assessment & Plan: rule out hepatitis, VS cholecystitis related , await MRI of the gall bladder , and hepatitis panel, monitor LFT (5) Sepsis Assessment & Plan: due to the above, await blood culture , continue antibiotics (6) Sacral wound Assessment & Plan: recommend off loading, and local wound care Subjective Constitutional: Reports: no symptoms HEENT: Reports: no symptoms Respiratory: Reports: no symptoms Breasts: Reports: no symptoms Cardiovascular: Reports: no symptoms Gastrointestinal/Abdominal: Reports: no symptoms Genitourinary: Reports: hematuria Neurologic: Reports: weakness Psychiatric: Reports: depression Skin: Reports: ulcer Endocrine: Reports: no symptoms Hematologic: Reports: no symptoms Allergies: Coded Allergies: CLINDAMYCIN (Unverified Allergy, Unknown, 02/01/17) DOXYCYCLINE (Unverified Allergy, Unknown, 02/01/17) PENICILLINS (Unverified Allergy, Unknown, 02/01/17) SULFA (SULFONAMIDE ANTIBIOTICS) (Unverified Allergy, Unknown, 02/01/17) Objective Vital Signs Last 24 Hour Vital Signs Date Time Temp Pulse Resp B/P (MAP) Pulse Ox O2 Delivery O2 Flow Rate FiO2 02/03/17 12:01 98.0 81 20 119/62 96 Room Air 02/03/17 12:00 82 02/03/17 11:32 81 119/62 02/03/17 08:00 65 02/03/17 08:00 98.0 104 22 129/62 96 Room Air 02/03/17 04:00 98.3 58 20 130/58 95 Nasal Cannula 1.5 02/03/17 04:00 74 02/03/17 00:00 56 02/02/17 20:00 70 02/02/17 20:00 98.2 78 20 118/57 98 Nasal Cannula 1.5 02/02/17 15:59 97.2 60 20 105/45 Nasal Cannula 2.0 Height (Feet): 6 Weight (Pounds): 140 General Appearance: WD/WN, no acute distress HEENT: normocephalic, atraumatic, anicteric, mucous membranes moist, PERRL Respiratory/Chest: chest wall non-tender, normal breath sounds, no respiratory distress, no accessory muscle use, decreased breath sounds, crackles/rales Cardiovascular: normal peripheral pulses, normal rate, regular rhythm, no gallop/murmur, no JVD Abdomen: normal bowel sounds, soft, non tender, no organomegaly, non distended , no mass, no scars Genitourinary: normal external genitalia Extremities: no cyanosis, no clubbing Skin: no rash, no lesions, ulcers Neurologic/Psychiatric: alert, responsive Microbiology Date/Time Source Procedure Growth Status 02/01/17 18:00 Blood Blood Culture - Preliminary NO GROWTH AFTER 24 HOURS Resulted 02/01/17 17:45 Blood Blood Culture - Preliminary NO GROWTH AFTER 24 HOURS Resulted 02/01/17 19:00 Urine,Clean Catch Urine Culture - Preliminary Gram Negative Bacillus 1 Resulted Laboratory Tests Test 02/03/17 07:10 White Blood Count 6.6 K/UL (4.8-10.8) Red Blood Count 3.15 M/UL (4.70-6.10) L Hemoglobin 9.4 G/DL (14.2-18.0) L Hematocrit 29.2 % (42.0-52.0) L Mean Corpuscular Volume 93 FL (80-99) Mean Corpuscular Hemoglobin 29.9 PG (27.0-31.0) Mean Corpuscular Hemoglobin Concent 32.3 G/DL (32.0-36.0) Red Cell Distribution Width 17.2 % (11.6-14.8) H Platelet Count 133 K/UL (150-450) L Mean Platelet Volume 8.1 FL (6.5-10.1) Neutrophils (%) (Auto) 77.9 % (45.0-75.0) H Lymphocytes (%) (Auto) 9.7 % (20.0-45.0) L Monocytes (%) (Auto) 9.8 % (1.0-10.0) Eosinophils (%) (Auto) 1.5 % (0.0-3.0) Basophils (%) (Auto) 1.0 % (0.0-2.0) Prothrombin Time 16.1 SEC (9.30-11.50) H Prothromb Time International Ratio 1.5 (0.9-1.1) H Sodium Level 134 mEQ/L (135-145) L Potassium Level 3.9 mEQ/L (3.4-4.9) Chloride Level 95 mEQ/L (98-107) L Carbon Dioxide Level 30 mEQ/L (20-30) Anion Gap 9 (5-15) Blood Urea Nitrogen 21 mg/dL (7-23) Creatinine 1.0 mg/dL (0.7-1.2) Estimat Glomerular Filtration Rate mL/min (>60) Glucose Level 142 mg/dL (74-106) H Hemoglobin A1c 5.4 % (< 6.0) Uric Acid 4.3 mg/dL (3.0-7.5) Calcium Level 8.9 mg/dL (8.6-10.2) Phosphorus Level 3.2 mg/dL (2.5-4.8) Magnesium Level 1.9 mg/dL (1.7-2.5) Total Bilirubin 4.3 mg/dL (0.0-1.2) H Direct Bilirubin 2.1 mg/dL (0.1-0.3) H Gamma Glutamyl Transpeptidase 257 U/L (8-61) H Aspartate Amino Transf (AST/SGOT) 188 U/L (5-40) H Alanine Aminotransferase (ALT/SGPT) 317 U/L (3-41) H Alkaline Phosphatase 215 U/L (40-129) H Ammonia 24 umol/L (16-60) C-Reactive Protein, Quantitative 9.9 mg/dL (< 0.5) H Pro-B-Type Natriuretic Peptide 7664 pg/mL (0-450) H Total Protein 5.8 g/dL (6.6-8.7) L Albumin 3.6 g/dL (3.5-5.2) Globulin 2.2 g/dL Albumin/Globulin Ratio 1.6 (1.0-2.7) Triglycerides Level 81 mg/dL (< 150) Cholesterol Level 80 mg/dL (< 200) LDL Cholesterol 36 mg/dL (60-99) L HDL Cholesterol 28 mg/dL (> 60) Cholesterol/HDL Ratio 2.9 (3.3-4.4) L Amylase Level 36 U/L (10-110) Alpha Fetoprotein Pending Carcinoembryonic Antigen 1.0 ng/mL Thyroid Stimulating Hormone (TSH) 0.922 uIU/mL (0.300-4.500) Free Thyroxine 1.23 ng/dL (0.86-1.85) Current Medications Medications (Trade) Dose Ordered Sig/Benjy Route PRN Reason Start Time Stop Time Status Last Admin Dose Admin Acetaminophen (Tylenol) 650 mg Q4H PRN ORAL Mild Pain/Temp > 100.5 02/01/17 22:45 03/03/17 22:44 02/02/17 18:35 Apixaban (Eliquis) 2.5 mg BID ORAL 02/02/17 18:00 03/04/17 17:59 02/03/17 08:52 Aspirin (ASA) 81 mg DAILY NG 02/02/17 11:30 03/04/17 11:29 02/03/17 08:52 Atorvastatin Calcium (Lipitor) 5 mg BEDTIME ORAL 02/02/17 21:00 03/04/17 20:59 02/02/17 21:17 Aztreonam 1 gm/ Dextrose 55 ml @ 110 mls/hr Q12H IVPB 02/02/17 15:00 02/08/17 15:29 02/03/17 15:03 Dextrose (Dextrose 50%) STAT PRN IV Hypoglycemia 02/02/17 23:15 03/04/17 23:14 Docusate Sodium (Colace) 100 mg TWICE A DAY ORAL 02/02/17 18:00 03/04/17 17:59 02/03/17 08:52 Finasteride (Proscar) 5 mg DAILY ORAL 02/03/17 09:00 03/05/17 08:59 02/03/17 08:53 Furosemide (Lasix) 20 mg DAILY ORAL 02/03/17 09:00 03/05/17 08:59 02/03/17 08:52 Insulin Aspart (NovoLOG) BEFORE MEALS AND HS SUBQ 02/03/17 01:00 03/05/17 00:59 02/03/17 11:34 Iron Sucrose 100 mg/Sodium Chloride 60 ml @ 240 mls/hr BEDTIME IVPB 02/02/17 21:00 02/06/17 21:14 02/02/17 21:17 Lactobacillus Acidophilus (Culturelle) 1 tab THREE TIMES A DAY ORAL 02/03/17 13:00 03/05/17 12:59 02/03/17 13:20 Lorazepam (Ativan) 0.5 mg Q4H PRN ORAL For Anxiety 02/02/17 11:15 02/09/17 11:14 02/02/17 21:16 Lorazepam (Ativan) 1 mg Q4H PRN ORAL Agitation 02/02/17 11:30 02/09/17 11:14 Metronidazole (Flagyl) 500 mg Q8HR ORAL 02/02/17 10:45 02/09/17 10:44 02/03/17 13:20 Morphine Sulfate (Morphine Sulfate) 2 mg ONCE PRN IVP HIDA SCAN 02/02/17 12:00 02/03/17 18:00 Pantoprazole (Protonix) 40 mg BEFORE LUNCH ORAL 02/02/17 11:30 03/04/17 11:29 02/03/17 11:32 Polyethylene Glycol (Miralax) 17 gm BEDTIME ORAL 02/02/17 21:00 03/04/17 20:59 02/02/17 21:17 Polyethylene Glycol (Miralax) 17 gm DAILY PRN ORAL Constipation 02/03/17 11:00 03/05/17 10:59 02/03/17 11:32 Tamsulosin HCl (Flomax) 0.4 mg QHS ORAL 02/02/17 21:00 03/04/17 20:59 02/02/17 21:17 Verapamil HCl (Calan SR) 180 mg DAILY ORAL 02/03/17 09:00 03/05/17 08:59 02/03/17 11:32 Brandy Russ M.D. Feb 03, 2017 15:58
[2017-02-03 16:00] VITALS: BP 114/70
[2017-02-03 16:36] VITALS: BP 113/44
--- NOTE | 2017-02-03 17:29 | Physician Query ---
PLEASE COMPLETE THE DOCUMENT BEFORE SIGNING Dear Dr. Fields Date: __02/03/2017___ [employer] Name: AlciiaAlida Almodovar MD____ [employer] Phone #_Ext [phone] _ Exercise your independent professional judgment when responding to query. Question asked do not imply a particular answer is desired/expected Clinical Documentation States: "Congestive heart failure" documented in Dr. العراقي's Consultaion & Progress Notes Clinical Findings Show: "Congestive heart failure with diastolic dysfunction" as per Dr. العراقي's Consultaion & Progress Notes BNP _8,430 (on 02/01/2017)_, _7,664 (on 02/03/2017)_ Diuretic _Lasix __ Echocardiogram Left ventricular ejection fraction estimated to be 60-65% Please Clarify: Acuity [] Acute [] Chronic [] Acute on Chronic Type [] Systolic [] Diastolic [] Systolic & Diastolic (Combined) [] Left Heart failure [] Other: Etiology [] CHF due to Hypertension [] Cardiomyopathy [] Valvular Heart Disease [] Coronary Artery Disease [] Unable to determine [] Other: Condition Present on Admission: [] Yes [] No []Clinically Undeterminable Please also document in your Progress Notes and/or Discharge Summary and indicate if the condition was present on admission. ADAM العراقي M.D. Date & Time [facility]
[2017-02-03 20:00] VITALS: BP 135/52
[2017-02-03] MEDS: Tamsulosin 0.4mg cap ORAL SCH (20:26)
--- NOTE | 2017-02-03 20:27 | General Progress Note ---
Assessment/Plan Problem List: (1) Sepsis ICD Codes: A41.9 - Sepsis, unspecified organism SNOMED: 29628069 (2) UTI (urinary tract infection) ICD Codes: N39.0 - Urinary tract infection, site not specified SNOMED: 04608517 (3) Anemia ICD Codes: D64.9 - Anemia, unspecified SNOMED: 223827514 (4) LFT elevation ICD Codes: R79.89 - Other specified abnormal findings of blood chemistry SNOMED: 574957534 (5) Constipation ICD Codes: K59.00 - Constipation, unspecified SNOMED: 88272809 (6) Cholecystitis ICD Codes: K81.9 - Cholecystitis, unspecified SNOMED: 78315319, 39417305 (7) Syncope ICD Codes: R55 - Syncope and collapse SNOMED: 056380831 Status: progressing Assessment/Plan afebrile vitals stable pleural effusion consulted pulmonary r/o acute cholycystitis anemia jaundice uti syncope Subjective ROS Limited/Unobtainable: Yes Constitutional: Reports: no symptoms Allergies: Coded Allergies: CLINDAMYCIN (Unverified Allergy, Unknown, 02/01/17) DOXYCYCLINE (Unverified Allergy, Unknown, 02/01/17) PENICILLINS (Unverified Allergy, Unknown, 02/01/17) SULFA (SULFONAMIDE ANTIBIOTICS) (Unverified Allergy, Unknown, 02/01/17) Objective Last 24 Hour Vital Signs Date Time Temp Pulse Resp B/P (MAP) Pulse Ox O2 Delivery O2 Flow Rate FiO2 02/03/17 20:00 97.9 64 18 135/52 94 Room Air 02/03/17 16:36 97.6 60 20 113/44 94 Room Air 02/03/17 16:00 71 02/03/17 16:00 02/03/17 12:01 98.0 81 20 119/62 96 Room Air 02/03/17 12:00 82 02/03/17 11:32 81 119/62 02/03/17 08:00 65 02/03/17 08:00 98.0 104 22 129/62 96 Room Air 02/03/17 04:00 98.3 58 20 130/58 95 Nasal Cannula 1.5 02/03/17 04:00 74 02/03/17 00:00 56 Intake and Output 02/03/17 02/04/17 19:00 07:00 Intake Total 720 ml Output Total 500 ml Balance 220 ml Intake Oral 720 ml Output Urine Total 500 ml Laboratory Tests 02/03/17 07:10: White Blood Count 6.6, Red Blood Count 3.15L, Hemoglobin 9.4L, Hematocrit 29.2L , Mean Corpuscular Volume 93, Mean Corpuscular Hemoglobin 29.9, Mean Corpuscular Hemoglobin Concent 32.3, Red Cell Distribution Width 17.2H, Platelet Count 133L, Mean Platelet Volume 8.1, Neutrophils (%) (Auto) 77.9H, Lymphocytes (%) (Auto) 9.7L, Monocytes (%) (Auto) 9.8, Eosinophils (%) (Auto) 1.5, Basophils (%) (Auto) 1.0, Prothrombin Time 16.1H, Prothromb Time International Ratio 1.5H, Sodium Level 134L, Potassium Level 3.9, Chloride Level 95L, Carbon Dioxide Level 30, Anion Gap 9, Blood Urea Nitrogen 21, Creatinine 1.0, Estimat Glomerular Filtration Rate , Glucose Level 142H, Hemoglobin A1c 5.4, Uric Acid 4.3, Calcium Level 8.9, Phosphorus Level 3.2, Magnesium Level 1.9, Total Bilirubin 4.3H, Direct Bilirubin 2.1H, Gamma Glutamyl Transpeptidase 257H, Aspartate Amino Transf (AST/SGOT) 188H, Alanine Aminotransferase (ALT/SGPT) 317H, Alkaline Phosphatase 215H, Ammonia 24, C- Reactive Protein, Quantitative 9.9H, Pro-B-Type Natriuretic Peptide 7664H, Total Protein 5.8L, Albumin 3.6, Globulin 2.2, Albumin/Globulin Ratio 1.6, Triglycerides Level 81, Cholesterol Level 80, LDL Cholesterol 36L, HDL Cholesterol 28, Cholesterol/HDL Ratio 2.9L, Amylase Level 36, Alpha Fetoprotein [Pending], Carcinoembryonic Antigen 1.0, Thyroid Stimulating Hormone (TSH) 0.922 , Free Thyroxine 1.23 Height (Feet): 6 Weight (Pounds): 140 Latesha Persaud MD Feb 03, 2017 20:27
[2017-02-03] MEDS: Iron Sucrose 100 MG in NS 55 ML IVPB SCH (20:30)
[2017-02-03] MEDS: LORazepam 0.5mg tab ORAL PRN (20:33)
[2017-02-04] MEDS: Aztreonam Inj 1 GM in D5W 55 ML IVPB SCH (02:01)
[2017-02-04 04:00] VITALS: BP 126/62
--- NOTE | 2017-02-04 06:17 | Consultation ---
DATE OF CONSULTATION: 02/02/2017 NOTE: POOR AUDIO QUALITY HEMATOLOGY/ONCOLOGY CONSULTATION CONSULTING PHYSICIAN: Bashir Barrera M.D. REQUESTING PHYSICIAN: Latesha Persaud M.D. REASON FOR CONSULTATION: Evaluation of anemia, recent blood transfusions. IDENTIFICATION DATA: Dear Dr. Persaud, The patient is a pleasant 89-year-old male with a past medical history of chronic liver disease and possible syncopal episode. He has a history of being diagnosed with anemia, mostly seen at [facility] by . Paramedics reported there was some argument with the patient's daughter and therefore history was extremely limited, essentially related to syncopal episode. The patient is unable to provide further history. Admitted today with Dr. Persaud as well as . The patient's daughter did present soon after arrival. The patient was found to be anemic and given blood transfusion. He is also on anticoagulation for atrial fibrillation. Hematology service was consulted. The patient continues to have transaminitis, otherwise pending. Hepatitis panel pending as well. PAST MEDICAL HISTORY: Limited per review of the record. The patient is iron deficient, therefore started on Venofer. ALLERGIES: Doxycycline, penicillin, sulfa, and clindamycin. REVIEW OF SYSTEMS: Negative besides as noted in the HPI. PHYSICAL EXAMINATION: GENERAL: The patient is in no acute distress. VITAL SIGNS: Temperature 98 degrees Fahrenheit, pulse of 78, respiratory rate 12, blood pressure 118/57, and pulse oximetry 98% liters nasal cannula. PULMONARY: Decreased breath sounds. No crackles noted. CARDIOVASCULAR: Regular rate. No S3 or S4. ABDOMEN: Soft, nontender, and nondistended. EXTREMITIES: A 1+ edema. LABORATORY DATA: WBC 3.7, hemoglobin 9.1, hematocrit 28, and platelet count 132,000. 129,000. INR 1.7. 196. PTT of 28. Lactic acid 2000. Hepatitis panel pending. HIV is negative. ASSESSMENT AND PLAN: 1. Anemia secondary to chronic disease. Continue to closely monitor. is elevated, therefore, we will discontinue iron at this time. 2. Thrombocytopenia, potentially secondary to underlying sepsis. Continue to closely monitor. 3. Decreased hemoglobin and hematocrit, rule out gastrointestinal bleed. 4. Coagulopathy, likely secondary to hepatocellular disease versus . 5. Urinary tract infection, sepsis, and elevated lactic acid. 6. Syncopal episode, being seen by Cardiology. 7. Atrial fibrillation. Bashir Barrera M.D. DR: LYNDA JOB#: [id number] CC:
[2017-02-04] MEDS: metroNIDAZOLE 500mg tab ORAL SCH (06:48)
[2017-02-04] MEDS: NovoLOG Insulin Flexpen SUBQ SCH ×2 (06:51→11:30)
[2017-02-04 07:15] LABS: EOSINOPHILS % (AUTO) 2.3 % (0.0-3.0); LYMPHOCYTES % (AUTO) 13.6 % (20.0-45.0); MEAN CORPUSCULAR HGB CONC 32.5 G/DL (32.0-36.0); MEAN CORPUSCULAR VOLUME 92 FL (80-99); MEAN PLATELET VOLUME 7.6 FL (6.5-10.1); MONOCYTES % (AUTO) 13.6 % (1.0-10.0); NEUTROPHILS % (AUTO) 69.5 % (45.0-75.0); PLATELET COUNT 159 K/UL (150-450); RED BLOOD COUNT 2.85 M/UL (4.70-6.10); RED CELL DISTRIBUTION WIDTH 16.8 % (11.6-14.8); WHITE BLOOD COUNT 5.1 K/UL (4.8-10.8)
[2017-02-04 07:23] LABS: INR 1.3 (0.9-1.1)
[2017-02-04 07:32] LABS: ALANINE AMINOTRANSFERASE 187 U/L (3-41); ALBUMIN/GLOBULIN RATIO 1.7 (1.0-2.7); ANION GAP 11 (5-15); ASPARTATE AMINO TRANSFERASE 66 U/L (5-40); CALCIUM 8.4 mg/dL (8.6-10.2); CARBON DIOXIDE 28 mEQ/L (20-30); CHLORIDE 98 mEQ/L (98-107); CREATININE 0.9 mg/dL (0.7-1.2); HEMOLYSIS 6; SODIUM 137 mEQ/L (135-145); TOTAL PROTEIN 5.4 g/dL (6.6-8.7)
[2017-02-04 07:45] LABS: BILIRUBIN,DIRECT 1.1 mg/dL (0.1-0.3)
[2017-02-04 08:00] VITALS: BP 138/66
[2017-02-04 08:51] VITALS: BP 138/66
[2017-02-04] MEDS: Aspirin Baby 81mg NG SCH (08:51)
[2017-02-04] MEDS: Lactobacillus-GG tablet ORAL SCH (08:51)
[2017-02-04] MEDS: Verapamil 180mg SR tab ORAL SCH (08:51)
[2017-02-04] MEDS: Eliquis 2.5mg tablet ORAL SCH (08:52)
[2017-02-04] MEDS: Docusate 100mg cap ORAL SCH (08:52)
--- NOTE | 2017-02-04 10:38 | GI Progress Note ---
Assessment/Plan Problems: (1) Constipation ICD Codes: K59.00 - Constipation, unspecified SNOMED: 60162903 (2) LFT elevation ICD Codes: R79.89 - Other specified abnormal findings of blood chemistry SNOMED: 817985883 (3) Anemia ICD Codes: D64.9 - Anemia, unspecified SNOMED: 073540677 (4) Sepsis ICD Codes: A41.9 - Sepsis, unspecified organism SNOMED: 10144636 Status: stable Status Narrative Discussed with Dr. Smith. Assessment/Plan CT Abdomen Pelvis w/Contrast reviewed >> NO definite gallstones. liver cysts. diverticulosis of colon, see full report. abdominal U/S reviewed >> gallbladder sludge, No evidence of bile duct dilation/ obstruction. >> will defer HIDA INR >> 1.7 venofer >> hold given normal TIBC, see heme note. OB stool x 3 >> negative hepatitis panel >> negative per family request >> no invasive procedures monitor LFTs, downtrending bowel regime probiotics added monitor H&H, prn transfusions ppi fu AFP fu labs The patient was seen and examined at bedside and all new and available data was reviewed in the patients chart. I agree with the above findings, impression and plan. (Patient seen earlier today. Signature stamp does not reflect patient encounter time.). -Camden Smith MD Subjective Subjective limited Objective Last 24 Hour Vital Signs Date Time Temp Pulse Resp B/P (MAP) Pulse Ox O2 Delivery O2 Flow Rate FiO2 02/04/17 08:51 72 138/66 02/04/17 08:00 78 02/04/17 08:00 97.6 72 18 138/66 98 Nasal Cannula 2.0 02/04/17 04:00 88 02/04/17 04:00 97.7 83 18 126/62 97 Nasal Cannula 02/04/17 00:00 64 02/03/17 20:00 60 02/03/17 20:00 97.9 64 18 135/52 94 Room Air 02/03/17 16:36 97.6 60 20 113/44 94 Room Air 02/03/17 16:00 71 02/03/17 16:00 02/03/17 12:01 98.0 81 20 119/62 96 Room Air 02/03/17 12:00 82 02/03/17 11:32 81 119/62 Laboratory Tests Test 02/04/17 04:30 02/04/17 07:00 02/04/17 09:20 Stool Occult Blood Negative (NEGATIVE) Negative (NEGATIVE) White Blood Count 5.1 K/UL (4.8-10.8) Red Blood Count 2.85 M/UL (4.70-6.10) L Hemoglobin 8.6 G/DL (14.2-18.0) L Hematocrit 26.4 % (42.0-52.0) L Mean Corpuscular Volume 92 FL (80-99) Mean Corpuscular Hemoglobin 30.0 PG (27.0-31.0) Mean Corpuscular Hemoglobin Concent 32.5 G/DL (32.0-36.0) Red Cell Distribution Width 16.8 % (11.6-14.8) H Platelet Count 159 K/UL (150-450) Mean Platelet Volume 7.6 FL (6.5-10.1) Neutrophils (%) (Auto) 69.5 % (45.0-75.0) Lymphocytes (%) (Auto) 13.6 % (20.0-45.0) L Monocytes (%) (Auto) 13.6 % (1.0-10.0) H Eosinophils (%) (Auto) 2.3 % (0.0-3.0) Basophils (%) (Auto) 1.0 % (0.0-2.0) Prothrombin Time 14.0 SEC (9.30-11.50) H Prothromb Time International Ratio 1.3 (0.9-1.1) H Activated Partial Thromboplast Time 41 SEC (23-33) H Sodium Level 137 mEQ/L (135-145) Potassium Level 4.0 mEQ/L (3.4-4.9) Chloride Level 98 mEQ/L (98-107) Carbon Dioxide Level 28 mEQ/L (20-30) Anion Gap 11 (5-15) Blood Urea Nitrogen 19 mg/dL (7-23) Creatinine 0.9 mg/dL (0.7-1.2) Estimat Glomerular Filtration Rate mL/min (>60) Glucose Level 148 mg/dL (74-106) H Calcium Level 8.4 mg/dL (8.6-10.2) L Total Bilirubin 2.4 mg/dL (0.0-1.2) H Direct Bilirubin 1.1 mg/dL (0.1-0.3) H Aspartate Amino Transf (AST/SGOT) 66 U/L (5-40) H Alanine Aminotransferase (ALT/SGPT) 187 U/L (3-41) H Alkaline Phosphatase 170 U/L (40-129) H Pro-B-Type Natriuretic Peptide 5504 pg/mL (0-450) H Total Protein 5.4 g/dL (6.6-8.7) L Albumin 3.4 g/dL (3.5-5.2) L Globulin 2.0 g/dL Albumin/Globulin Ratio 1.7 (1.0-2.7) Height (Feet): 6 Weight (Pounds): 140 General Appearance: no apparent distress, alert Cardiovascular: normal rate Respiratory/Chest: normal breath sounds, other - 2LNC Abdominal Exam: normal bowel sounds, non tender, soft Tabby Cleveland N.P. Feb 04, 2017 10:38 CAMDEN SMITH Feb 09, 2017 06:34
--- NOTE | 2017-02-04 10:41 | General Progress Note ---
Assessment/Plan Status: stable Assessment/Plan status: UTI, Sepsis , high Lactic Syncope CHF At Fib DM Anemia High LFTs and Bili, improving Plan: No renal issue- Per cardio- Neuro Watch electrolytes adjust BP meds per orders discussed with daughter Marielos House ROS Limited/Unobtainable: No Constitutional: Reports: malaise Allergies: Coded Allergies: CLINDAMYCIN (Unverified Allergy, Unknown, 02/01/17) DOXYCYCLINE (Unverified Allergy, Unknown, 02/01/17) PENICILLINS (Unverified Allergy, Unknown, 02/01/17) SULFA (SULFONAMIDE ANTIBIOTICS) (Unverified Allergy, Unknown, 02/01/17) Objective Last 24 Hour Vital Signs Date Time Temp Pulse Resp B/P (MAP) Pulse Ox O2 Delivery O2 Flow Rate FiO2 02/04/17 08:51 72 138/66 02/04/17 08:00 78 02/04/17 08:00 97.6 72 18 138/66 98 Nasal Cannula 2.0 02/04/17 04:00 88 02/04/17 04:00 97.7 83 18 126/62 97 Nasal Cannula 02/04/17 00:00 64 02/03/17 20:00 60 02/03/17 20:00 97.9 64 18 135/52 94 Room Air 02/03/17 16:36 97.6 60 20 113/44 94 Room Air 02/03/17 16:00 71 02/03/17 16:00 02/03/17 12:01 98.0 81 20 119/62 96 Room Air 02/03/17 12:00 82 02/03/17 11:32 81 119/62 Laboratory Tests 02/04/17 04:30: Stool Occult Blood Negative 02/04/17 07:00: White Blood Count 5.1, Red Blood Count 2.85L, Hemoglobin 8.6L, Hematocrit 26.4L , Mean Corpuscular Volume 92, Mean Corpuscular Hemoglobin 30.0, Mean Corpuscular Hemoglobin Concent 32.5, Red Cell Distribution Width 16.8H, Platelet Count 159, Mean Platelet Volume 7.6, Neutrophils (%) (Auto) 69.5, Lymphocytes (%) (Auto) 13.6L, Monocytes (%) (Auto) 13.6H, Eosinophils (%) (Auto ) 2.3, Basophils (%) (Auto) 1.0, Prothrombin Time 14.0H, Prothromb Time International Ratio 1.3H, Activated Partial Thromboplast Time 41H, Sodium Level 137, Potassium Level 4.0, Chloride Level 98, Carbon Dioxide Level 28, Anion Gap 11, Blood Urea Nitrogen 19, Creatinine 0.9, Estimat Glomerular Filtration Rate , Glucose Level 148H, Calcium Level 8.4L, Total Bilirubin 2.4H, Direct Bilirubin 1.1H, Aspartate Amino Transf (AST/SGOT) 66H, Alanine Aminotransferase (ALT/SGPT) 187H, Alkaline Phosphatase 170H, Pro-B-Type Natriuretic Peptide 5504H , Total Protein 5.4L, Albumin 3.4L, Globulin 2.0, Albumin/Globulin Ratio 1.7 02/04/17 09:20: Stool Occult Blood Negative Height (Feet): 6 Weight (Pounds): 140 General Appearance: no apparent distress Objective no change ANIA ALEJANDRE Feb 04, 2017 10:41
[2017-02-04] MEDS ORDERED: CALAN SR180 MG ORAL (11:02)
--- NOTE | 2017-02-04 11:07 | Consultation ---
History of Present Illness General Date patient seen: Feb 04, 2017 Chief Complaint: Syncope Referring physician: KATIE SHAW Reason for Consultation: ELEVATED LFTs Present Illness HPI 89 year old male with hx of chronic anemia, CHF, recurrent pleural effusion, was admitted a few days ago with CC of weakness, he was found to have UTI and was treated with abx. I was asked to see him for Right pleural effusion. Allergies: Coded Allergies: CLINDAMYCIN (Unverified Allergy, Unknown, 02/01/17) DOXYCYCLINE (Unverified Allergy, Unknown, 02/01/17) PENICILLINS (Unverified Allergy, Unknown, 02/01/17) SULFA (SULFONAMIDE ANTIBIOTICS) (Unverified Allergy, Unknown, 02/01/17) Medication History Scheduled Apixaban (Eliquis), 2.5 MG PO BID, (Reported) Aspirin* (Aspir 81*), 81 MG ORAL DAILY, (Reported) Calcium Carbonate/Vitamin D3 (Calcium 600 + Vit D 200 Tablet), 1 EACH PO BID, ( Reported) Cholecalciferol (Vitamin D3)* (Vitamin D*), 2,000 UNITS ORAL DAILY, (Reported) Digoxin* (Digoxin*), 0.125 MG ORAL DAILY, (Reported) Docusate Sodium* (Docusate Sodium*), 100 MG ORAL TWICE A DAY, (Reported) Ferrous Sulfate* (Ferrous Sulfate*), 325 MG ORAL TWICE A DAY, (Reported) Finasteride* (Proscar*), 5 MG ORAL DAILY, (Reported) Furosemide* (Lasix*), 20 MG ORAL DAILY, (Reported) Glucosamine Hcl (Glucosamine Hcl), 500 MG PO BID, (Reported) Loratadine (Loratadine), 10 MG PO BEDTIME, (Reported) M-17/Nettle/Pumpk/Saw Palmet (Prostate Therapy Softgel), 1 EACH PO BEDTIME, ( Reported) Metformin Hcl* (Metformin Hcl*), 500 MG ORAL TWICE A DAY, (Reported) Multivitamins* (Multivitamins*), 1 TAB ORAL DAILY, (Reported) Pantoprazole* (Pantoprazole*), 40 MG ORAL BEFORE LUNCH, (Reported) Simvastatin (Zocor), 10 MG ORAL BEDTIME, (Reported) Verapamil HCl (Verapamil Sr), 180 MG PO DAILY, (Reported) Vit A/Vit C/Vit E/Zinc/Copper (Preservision Areds Softgel), 1 EACH PO BID, ( Reported) Scheduled PRN Lorazepam* (Lorazepam*), 0.5 MG ORAL for Agitation, (Reported) Miscellaneous Medications Acetaminophen* (Tylenol Extra Strength*), 500 MG ORAL, (Reported) Tamsulosin Hcl (Tamsulosin Hcl*), 0.4 MG ORAL, (Reported) Patient History Healthcare decision maker Anupama Elizalde Resuscitation status Full Code Advanced Directive on File No Past Medical/Surgical History Past Medical/Surgical History: (1) Atrial fibrillation (2) Sacral wound Review of Systems All Other Systems: negative except mentioned in HPI Physical Exam General Appearance: cachetic Lines, tubes and drains: peripheral HEENT: normocephalic, atraumatic Neck: non-tender, normal alignment Respiratory/Chest: chest wall non-tender, lungs clear Cardiovascular/Chest: normal peripheral pulses, normal rate Abdomen: normal bowel sounds, non tender Genitourinary/Rectal: normal genital exam, normal rectal exam Extremities: normal range of motion Skin Exam: normal pigmentation Last 24 Hour Vital Signs Date Time Temp Pulse Resp B/P (MAP) Pulse Ox O2 Delivery O2 Flow Rate FiO2 02/04/17 08:51 72 138/66 02/04/17 08:00 78 02/04/17 08:00 97.6 72 18 138/66 98 Nasal Cannula 2.0 02/04/17 04:00 88 02/04/17 04:00 97.7 83 18 126/62 97 Nasal Cannula 02/04/17 00:00 64 02/03/17 20:00 60 02/03/17 20:00 97.9 64 18 135/52 94 Room Air 02/03/17 16:36 97.6 60 20 113/44 94 Room Air 02/03/17 16:00 71 02/03/17 16:00 02/03/17 12:01 98.0 81 20 119/62 96 Room Air 02/03/17 12:00 82 02/03/17 11:32 81 119/62 Laboratory Tests Test 02/04/17 04:30 02/04/17 07:00 02/04/17 09:20 Stool Occult Blood Negative (NEGATIVE) Negative (NEGATIVE) White Blood Count 5.1 K/UL (4.8-10.8) Red Blood Count 2.85 M/UL (4.70-6.10) L Hemoglobin 8.6 G/DL (14.2-18.0) L Hematocrit 26.4 % (42.0-52.0) L Mean Corpuscular Volume 92 FL (80-99) Mean Corpuscular Hemoglobin 30.0 PG (27.0-31.0) Mean Corpuscular Hemoglobin Concent 32.5 G/DL (32.0-36.0) Red Cell Distribution Width 16.8 % (11.6-14.8) H Platelet Count 159 K/UL (150-450) Mean Platelet Volume 7.6 FL (6.5-10.1) Neutrophils (%) (Auto) 69.5 % (45.0-75.0) Lymphocytes (%) (Auto) 13.6 % (20.0-45.0) L Monocytes (%) (Auto) 13.6 % (1.0-10.0) H Eosinophils (%) (Auto) 2.3 % (0.0-3.0) Basophils (%) (Auto) 1.0 % (0.0-2.0) Prothrombin Time 14.0 SEC (9.30-11.50) H Prothromb Time International Ratio 1.3 (0.9-1.1) H Activated Partial Thromboplast Time 41 SEC (23-33) H Sodium Level 137 mEQ/L (135-145) Potassium Level 4.0 mEQ/L (3.4-4.9) Chloride Level 98 mEQ/L (98-107) Carbon Dioxide Level 28 mEQ/L (20-30) Anion Gap 11 (5-15) Blood Urea Nitrogen 19 mg/dL (7-23) Creatinine 0.9 mg/dL (0.7-1.2) Estimat Glomerular Filtration Rate mL/min (>60) Glucose Level 148 mg/dL (74-106) H Calcium Level 8.4 mg/dL (8.6-10.2) L Total Bilirubin 2.4 mg/dL (0.0-1.2) H Direct Bilirubin 1.1 mg/dL (0.1-0.3) H Aspartate Amino Transf (AST/SGOT) 66 U/L (5-40) H Alanine Aminotransferase (ALT/SGPT) 187 U/L (3-41) H Alkaline Phosphatase 170 U/L (40-129) H Pro-B-Type Natriuretic Peptide 5504 pg/mL (0-450) H Total Protein 5.4 g/dL (6.6-8.7) L Albumin 3.4 g/dL (3.5-5.2) L Globulin 2.0 g/dL Albumin/Globulin Ratio 1.7 (1.0-2.7) Height (Feet): 6 Weight (Pounds): 140 Medications Current Medications Medications (Trade) Dose Ordered Sig/Benjy Route PRN Reason Start Time Stop Time Status Last Admin Dose Admin Acetaminophen (Tylenol) 650 mg Q4H PRN ORAL Mild Pain/Temp > 100.5 02/01/17 22:45 03/03/17 22:44 02/02/17 18:35 Apixaban (Eliquis) 2.5 mg BID ORAL 02/02/17 18:00 03/04/17 17:59 02/04/17 08:52 Aspirin (ASA) 81 mg DAILY NG 02/02/17 11:30 03/04/17 11:29 02/04/17 08:51 Atorvastatin Calcium (Lipitor) 5 mg BEDTIME ORAL 02/02/17 21:00 03/04/17 20:59 02/03/17 20:26 Aztreonam 1 gm/ Dextrose 55 ml @ 110 mls/hr Q12H IVPB 02/02/17 15:00 02/08/17 15:29 02/04/17 02:01 Dextrose (Dextrose 50%) STAT PRN IV Hypoglycemia 02/02/17 23:15 03/04/17 23:14 Docusate Sodium (Colace) 100 mg TWICE A DAY ORAL 02/02/17 18:00 03/04/17 17:59 02/04/17 08:52 Finasteride (Proscar) 5 mg DAILY ORAL 02/03/17 09:00 03/05/17 08:59 02/04/17 08:51 Furosemide (Lasix) 20 mg DAILY ORAL 02/03/17 09:00 03/05/17 08:59 02/04/17 08:52 Insulin Aspart (NovoLOG) BEFORE MEALS AND HS SUBQ 02/03/17 01:00 03/05/17 00:59 02/04/17 06:51 Iron Sucrose 100 mg/Sodium Chloride 60 ml @ 240 mls/hr BEDTIME IVPB 02/02/17 21:00 02/06/17 21:14 02/03/17 20:30 Lactobacillus Acidophilus (Culturelle) 1 tab THREE TIMES A DAY ORAL 02/03/17 13:00 03/05/17 12:59 02/04/17 08:51 Lorazepam (Ativan) 0.5 mg Q4H PRN ORAL For Anxiety 02/02/17 11:15 02/09/17 11:14 02/03/17 20:33 Lorazepam (Ativan) 1 mg Q4H PRN ORAL Agitation 02/02/17 11:30 02/09/17 11:14 Metronidazole (Flagyl) 500 mg Q8HR ORAL 02/02/17 10:45 02/09/17 10:44 02/04/17 06:48 Pantoprazole (Protonix) 40 mg BEFORE LUNCH ORAL 02/02/17 11:30 03/04/17 11:29 02/03/17 11:32 Polyethylene Glycol (Miralax) 17 gm BEDTIME ORAL 02/02/17 21:00 03/04/17 20:59 02/02/17 21:17 Polyethylene Glycol (Miralax) 17 gm DAILY PRN ORAL Constipation 02/03/17 11:00 03/05/17 10:59 02/03/17 11:32 Tamsulosin HCl (Flomax) 0.4 mg QHS ORAL 02/02/17 21:00 03/04/17 20:59 02/03/17 20:26 Verapamil HCl (Calan SR) 180 mg DAILY ORAL 02/03/17 09:00 03/05/17 08:59 02/04/17 08:51 Assessment/Plan Problem List: (1) Recurrent pleural effusion on right ICD Codes: J90 - Pleural effusion, not elsewhere classified SNOMED: 65446724 (2) UTI (urinary tract infection) ICD Codes: N39.0 - Urinary tract infection, site not specified SNOMED: 29674098 (3) Atrial fibrillation ICD Codes: I48.91 - Unspecified atrial fibrillation SNOMED: 70149693 Assessment/Plan effusion is small/moderate and pt dosn't have any SOB. I suggest to hold off any thoracentesis Considering advanced age, recurremnt hospitalization. I recommend hospice and end of life care. DORA RICARDO Feb 04, 2017 11:07
[2017-02-04 11:23] LABS: OTHERS PATHOLOGIST COMMENT
--- NOTE | 2017-02-04 12:01 | Diagnostic Imaging Report ---
Indication: Dyspnea Comparison: 02/01/17 A single view chest radiograph was obtained. Findings: Interstitial edema and bilateral pleural effusions demonstrated once again. Cardiomegaly is again noted. Impression: Evidence of fluid overload and CHF unchanged
--- NOTE | 2017-02-04 17:33 | General Progress Note ---
Assessment/Plan Assessment/Plan 1. Anemia secondary to chronic disease. Continue to closely monitor. Ferritin is elevated, therefore, we will discontinue iron at this time. 2. Thrombocytopenia, potentially secondary to underlying sepsis. Continue to closely monitor. 3. Decreased hemoglobin and hematocrit, rule out gastrointestinal bleed. 4. Coagulopathy, likely secondary to hepatocellular disease. 5. Urinary tract infection and sepsis. 6. Syncopal episode, being seen by Cardiology. 7. Atrial fibrillation. Subjective Date patient seen: Feb 03, 2017 Constitutional: Reports: no symptoms HEENT: Reports: no symptoms Cardiovascular: Reports: no symptoms Respiratory: Reports: no symptoms Gastrointestinal/Abdominal: Reports: no symptoms Genitourinary: Reports: no symptoms Neurologic/Psychiatric: Reports: no symptoms Endocrine: Reports: no symptoms Hematologic/Lymphatic: Reports: anemia Allergies: Coded Allergies: CLINDAMYCIN (Unverified Allergy, Unknown, 02/01/17) DOXYCYCLINE (Unverified Allergy, Unknown, 02/01/17) PENICILLINS (Unverified Allergy, Unknown, 02/01/17) SULFA (SULFONAMIDE ANTIBIOTICS) (Unverified Allergy, Unknown, 02/01/17) Objective Last 24 Hour Vital Signs Date Time Temp Pulse Resp B/P (MAP) Pulse Ox O2 Delivery O2 Flow Rate FiO2 02/04/17 08:51 72 138/66 02/04/17 08:00 78 02/04/17 08:00 97.6 72 18 138/66 98 Nasal Cannula 2.0 02/04/17 04:00 88 02/04/17 04:00 97.7 83 18 126/62 97 Nasal Cannula 02/04/17 00:00 64 02/03/17 20:00 60 02/03/17 20:00 97.9 64 18 135/52 94 Room Air Intake and Output 02/04/17 02/05/17 19:00 07:00 Intake Total 360 ml Output Total 300 ml Balance 60 ml Intake Oral 360 ml Output Urine Total 300 ml # Bowel Movements 1 Laboratory Tests 02/04/17 04:30: Stool Occult Blood Negative 02/04/17 07:00: White Blood Count 5.1, Red Blood Count 2.85L, Hemoglobin 8.6L, Hematocrit 26.4L , Mean Corpuscular Volume 92, Mean Corpuscular Hemoglobin 30.0, Mean Corpuscular Hemoglobin Concent 32.5, Red Cell Distribution Width 16.8H, Platelet Count 159, Mean Platelet Volume 7.6, Neutrophils (%) (Auto) 69.5, Lymphocytes (%) (Auto) 13.6L, Monocytes (%) (Auto) 13.6H, Eosinophils (%) (Auto ) 2.3, Basophils (%) (Auto) 1.0, Prothrombin Time 14.0H, Prothromb Time International Ratio 1.3H, Activated Partial Thromboplast Time 41H, Sodium Level 137, Potassium Level 4.0, Chloride Level 98, Carbon Dioxide Level 28, Anion Gap 11, Blood Urea Nitrogen 19, Creatinine 0.9, Estimat Glomerular Filtration Rate , Glucose Level 148H, Calcium Level 8.4L, Total Bilirubin 2.4H, Direct Bilirubin 1.1H, Aspartate Amino Transf (AST/SGOT) 66H, Alanine Aminotransferase (ALT/SGPT) 187H, Alkaline Phosphatase 170H, Pro-B-Type Natriuretic Peptide 5504H , Total Protein 5.4L, Albumin 3.4L, Globulin 2.0, Albumin/Globulin Ratio 1.7 02/04/17 09:20: Stool Occult Blood Negative Height (Feet): 6 Weight (Pounds): 140 General Appearance: no apparent distress EENT: normal ENT inspection Cardiovascular: normal rate Skin: warm/dry Bashir Barrera Feb 04, 2017 17:33
--- NOTE | 2017-02-04 17:35 | General Progress Note ---
Assessment/Plan Assessment/Plan 1. Anemia secondary to chronic disease. Continue to closely monitor. Ferritin is elevated, therefore, we will discontinue iron at this time. --> monitor counts 2. Thrombocytopenia, potentially secondary to underlying sepsis. Continue to closely monitor. --> resolved 3. Decreased hemoglobin and hematocrit, rule out gastrointestinal bleed. 4. Coagulopathy, likely secondary to hepatocellular disease. 5. Urinary tract infection and sepsis. 6. Syncopal episode, being seen by Cardiology. 7. Atrial fibrillation. Subjective Constitutional: Reports: no symptoms HEENT: Reports: no symptoms Cardiovascular: Reports: no symptoms Respiratory: Reports: no symptoms Gastrointestinal/Abdominal: Reports: no symptoms Genitourinary: Reports: no symptoms Neurologic/Psychiatric: Reports: no symptoms Endocrine: Reports: no symptoms Hematologic/Lymphatic: Reports: anemia Allergies: Coded Allergies: CLINDAMYCIN (Unverified Allergy, Unknown, 02/01/17) DOXYCYCLINE (Unverified Allergy, Unknown, 02/01/17) PENICILLINS (Unverified Allergy, Unknown, 02/01/17) SULFA (SULFONAMIDE ANTIBIOTICS) (Unverified Allergy, Unknown, 02/01/17) Subjective NAD, will be dc today Objective Last 24 Hour Vital Signs Date Time Temp Pulse Resp B/P (MAP) Pulse Ox O2 Delivery O2 Flow Rate FiO2 02/04/17 08:51 72 138/66 02/04/17 08:00 78 02/04/17 08:00 97.6 72 18 138/66 98 Nasal Cannula 2.0 02/04/17 04:00 88 02/04/17 04:00 97.7 83 18 126/62 97 Nasal Cannula 02/04/17 00:00 64 02/03/17 20:00 60 02/03/17 20:00 97.9 64 18 135/52 94 Room Air Intake and Output 02/04/17 02/05/17 19:00 07:00 Intake Total 360 ml Output Total 300 ml Balance 60 ml Intake Oral 360 ml Output Urine Total 300 ml # Bowel Movements 1 Laboratory Tests 02/04/17 04:30: Stool Occult Blood Negative 02/04/17 07:00: White Blood Count 5.1, Red Blood Count 2.85L, Hemoglobin 8.6L, Hematocrit 26.4L , Mean Corpuscular Volume 92, Mean Corpuscular Hemoglobin 30.0, Mean Corpuscular Hemoglobin Concent 32.5, Red Cell Distribution Width 16.8H, Platelet Count 159, Mean Platelet Volume 7.6, Neutrophils (%) (Auto) 69.5, Lymphocytes (%) (Auto) 13.6L, Monocytes (%) (Auto) 13.6H, Eosinophils (%) (Auto ) 2.3, Basophils (%) (Auto) 1.0, Prothrombin Time 14.0H, Prothromb Time International Ratio 1.3H, Activated Partial Thromboplast Time 41H, Sodium Level 137, Potassium Level 4.0, Chloride Level 98, Carbon Dioxide Level 28, Anion Gap 11, Blood Urea Nitrogen 19, Creatinine 0.9, Estimat Glomerular Filtration Rate , Glucose Level 148H, Calcium Level 8.4L, Total Bilirubin 2.4H, Direct Bilirubin 1.1H, Aspartate Amino Transf (AST/SGOT) 66H, Alanine Aminotransferase (ALT/SGPT) 187H, Alkaline Phosphatase 170H, Pro-B-Type Natriuretic Peptide 5504H , Total Protein 5.4L, Albumin 3.4L, Globulin 2.0, Albumin/Globulin Ratio 1.7 02/04/17 09:20: Stool Occult Blood Negative Height (Feet): 6 Weight (Pounds): 140 General Appearance: no apparent distress EENT: normal ENT inspection Cardiovascular: normal rate 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
--- NOTE | 2017-02-08 05:30 | Discharge Summary 2 SIG ---
DATE OF ADMISSION: 02/01/2017 DATE OF DISCHARGE: 02/04/2017 REASON FOR ADMISSION: 89-year-old male with history of chronic anemia, congestive heart failure, diabetes, hypertension, recurrent right pleural effusion presented with chief complaint of weakness, possible syncope/unwitnessed. The patient was found to have urinalysis consistent with UTI. Lactic acid was elevated. Chest x-ray revealed evidence of cardiomegaly with mitral valvular versus annular calcification and congestive heart failure. Abdominal ultrasound revealed liver echogenicity suggesting chronic hepatocellular disease. Gallbladder sludge. Intermixed small stones not excludable. Mural thickening may be secondary to adjacent liver disease. Cholecystitis not excludable, however, sonographic Zambrano sign was negative. No evidence of bile duct dilatation or obstruction. The pancreatic tail was obscured. Small right pleural effusion nonspecific. In the emergency department, the patient was found to have an elevated LFTs and bilirubin. Total bilirubin -5.1. Direct bilirubin -3.1. AST- 521, ALT -279. Pro BNP - 8430. Glucose -136. Troponin was negative. Lactic acid -3.6. Urinalysis grossly positive for urinary tract infection. No leukocytosis. Hemoglobin -10.2 and hematocrit -29.2. EKG revealed atrial fibrillation with controlled rate. The patient was admitted for further management. ADMITTING DIAGNOSES: 1. Probable sepsis. 2. Urinary tract infection. 3. Possible syncopal episode. 4. Possible cholecystitis. 5. Congestive heart failure with diastolic dysfunction. 6. Sacral decubitus, stage II, present on admission. 7. Atrial fibrillation. HOSPITAL COURSE: The patient was admitted. Cardiology, Infectious Disease, Pulmonology, and Hematology consult were requested. Per Cardiology, echocardiogram revealed ejection fraction of 60% to 65%, right ventricular systolic pressure of 52 consistent with severe pulmonary hypertension. Echocardiogram also revealed evidence of moderate mitral regurgitation. Blood pressure was managed with calcium channel neisha, verapamil 180 mg and Lasix. Blood pressure was stable. Congestive heart failure with a diastolic dysfunction, present on admission with pro BNP of 8430. Started on diuresis . Renal parameters, electrolytes, intake and output were closely monitored. Electrolytes were replaced as needed. Pro BNP was trending down. Follow up chest x-ray with slight improvement. Per senior administrative assistant, atrial fibrillation was permanent, rate was controlled with verapamil. Digoxin was on hold at some point, due to the elevated level. Anticoagulation with Eliquis- 2.5 mg b.i.d. provided. No evidence of bleeding. Supervisor [employer] seen the patient due to the evidence of recurrent right pleural effusion. Supervisor [employer], after reviewing the imaging, concluded that right pleural effusion was small. The patient was asymptomatic and clinical safety specialist suggested to hold on the thoracentesis and closely monitor the patient. Chest x-ray was followed up and revealed bilateral pleural effusion and CHF, no significant change. Clinically, the patient was improving, Rigging Up Man followed. According to orthopaedic doctor anemia workup revealed evidence of anemia of chronic disease. Rigging Up Man recommended, yo monitor counts and transfuse as needed. No need for transfusion on this admission. GI closely followed. Initially abdominal ultrasound could not exclude cholecystitis. Subsequently CT of the abdomen and pelvis was done which revealed moderate bilateral pleural effusion with associated posterior basal atelectasis; no definite gallstone, liver cyst and diverticulosis of the colon. Abdominal ultrasound revealed no evidence of bile duct dilatation or obstruction. GI followed and canceled HIDA scan based on negative results of abdominal US. INR elevated -1.7. Stool OB x3 was negative. Hepatitis panel was negative. The patient undergone EGD with finding of gastritis. The patient was on PPI. Bowel regimen instituted. Probiotic added. The patient was on PPI. Alpha-fetoprotein was within normal limits. Ammonia within normal limits - 26. ID closely followed. Urine culture positive for Klebsiella. Blood culture negative. The patient was on IV antibiotic and converted to oral before discharge. Script was called to pharmacy by ID specialist. Blood sugar was managed with sliding scale of insulin, was stable. Hemoglobin A1c -5.4. Wound care provided as per wound nurse recommendations for present on admission, sacral decubitus ulcer stage II. The patient was stable for discharge home. Follow up with the primary medical doctor. DISCHARGE DIAGNOSES: 1. Probable sepsis. 2. Lactic acidosis 3. UTI with Klebsiella 4. Hypertension. 5. Congestive heart failure, acute and chronic, diastolic dysfunction 6. Permanent atrial fibrillation. 7. Anemia of chronic disease. 8. Recurrent right pleural effusion. 9. Elevated transaminase ( no evidence of cholecystitis) 10. Sacral decubitus, stage II, present on admission. 11. Diabetes mellitus. 12. Severe pulmonary hypertension. DISCHARGE MEDICATIONS: See medication reconciliation list. DISCHARGE INSTRUCTIONS: The patient was discharged home. Follow up with primary medical doctor. Latesha Persaud M.D. I have been assigned to dictate discharge summary on this account and I was not involved in the patient's management. Ivana Pearce (Vanchtein) N.PNilton DR: GÓMEZ JOB#: [id number] CC: [id number]
== END 2017-02-04 13:14 | disposition home or self-care (01) | DRG 871 ==
LOC: EDBD 17:27 → EMR 18:00 → 2W 18:10 → EDBEDREQ 19:57
DX: A41.9 Sepsis, unspecified organism (principal); I50.33 Acute on chronic diastolic (congestive) heart failure; L89.152 Pressure ulcer of sacral region, stage 2; D69.6 Thrombocytopenia, unspecified; I27.2 Other secondary pulmonary hypertension; D68.4 Acquired coagulation factor deficiency; I48.2 Chronic atrial fibrillation; N39.0 Urinary tract infection, site not specified; K81.9 Cholecystitis, unspecified; R55 Syncope and collapse; R13.10 Dysphagia, unspecified; N40.0 Benign prostatic hyperplasia without lower urinary tract symptoms; E11.9 Type 2 diabetes mellitus without complications; E78.5 Hyperlipidemia, unspecified; Z79.01 Long term (current) use of anticoagulants; Z88.0 Allergy status to penicillin; Z88.2 Allergy status to sulfonamides; Z88.8 Allergy status to other drugs, medicaments and biological substances; Z87.891 Personal history of nicotine dependence; K59.00 Constipation, unspecified; I35.0 Nonrheumatic aortic (valve) stenosis; D63.8 Anemia in other chronic diseases classified elsewhere; I10 Essential (primary) hypertension; K21.9 Gastro-esophageal reflux disease without esophagitis; J44.9 Chronic obstructive pulmonary disease, unspecified; B96.1 Klebsiella pneumoniae [K. pneumoniae] as the cause of diseases classified elsewhere; K76.89 Other specified diseases of liver; K57.90 Diverticulosis of intestine, part unspecified, without perforation or abscess without bleeding
CPT/HCPCS: 36415; 71010; 74177; 76700; 80053; 80061; 80162; 81003; 82105; 82140; 82150; 82248; 82270; 82378; 82550; 82553; 82607; 82728; 82962; 82977; 83036; 83540; 83550; 83605; 83615; 83690; 83735; 83880; 84100; 84439; 84443; 84484; 84550; 85007; 85025; 85044; 85060; 85384; 85610; 85730; 86140; 86703; 86705; 86709; 86803; 86850; 86900; 86901; 87040; 87086; 87181; 87340; 92610; 93005; 93306; J1815